=== PATIENT | female | born 1955 | race Caucasian/White ===

== ENCOUNTER 2019-04-10 21:13 | Inpatient (IN) | payer BC ==
[~2019-04-10] VITALS: Ht 162.6 cm; Wt 94.5 kg
[~2019-04-10 21:13] MED LIST: ACET-804 PO; ASCO10002 PO; CA C1TAB28 PO; CYAN-25 PO; EZET10TA20 PO; IRON45TA3 PO; LISI-130 PO; MAGN500C10 PO; MULT1TAB52 PO; OMEP40CA45 PO; WARF1POW MC
[2019-04-10] MEDS ORDERED: IV NORMAL SALINE 1000ML BAG 1,000 ML IV SCH (21:30)
[2019-04-10] MEDS ORDERED: ASPIRIN CHEWABLE 81 MG TABLET. PO ONE (21:30)
[2019-04-10 21:36] LABS: BASO # 0.1 x10^3/uL (0.0-0.2); BASO % 1 % (0-3); EOS # 0.2 x10^3/uL (0.0-0.7); EOS % 3 % (0-3); HEMATOCRIT 42.3 % (36.0-47.0); HEMOGLOBIN 14.6 g/dL (12.0-15.5); LYMPH # 3.2 x10^3/uL (1.0-4.8); LYMPH % 41 % (24-48); MEAN CORPUSCULAR HEMOGLOBIN 31 pg (25-35); MEAN CORPUSCULAR HGB CONC 35 g/dL (31-37); MEAN CORPUSCULAR VOLUME 91 fL (79-100); MONO # 0.8 x10^3/uL (0.0-1.1); MONO % 10 % (0-9); NEUT # 3.5 x10^3/uL (1.8-7.7); NEUT % 45 % (31-73); PLATELET COUNT 316 x10^3/uL (140-400); RED BLOOD COUNT 4.66 x10^6/uL (3.50-5.40); RED CELL DISTRIBUTION WIDTH 14.2 % (11.5-14.5); WHITE BLOOD COUNT 7.7 x10^3/uL (4.0-11.0)
[2019-04-10] MEDS: NITROGLYCERIN SUBLINGUAL 0.4 MG BOTTLE OF 25. SL PRN ×2 (21:37→22:16)
[2019-04-10 21:52] LABS: CREATININE 0.9 mg/dL (0.6-1.0); GFR 62.8; POTASSIUM 3.9 mmol/L (3.5-5.1)
--- NOTE | 2019-04-10 21:56 | PHYS DOC ---
Adult General Chief Complaint Chief Complaint: CHEST PAIN HPI HPI 64-year-old female with underlying history of hypertension presents to the emergency department with complaints of chest pain. Patient states she's had linda st pain off and on all day however developed tingling, nausea, flush feeling of which prompted her to come to the emergency department. She currently denies any vomiting however does have some chest discomfort. She describes bilateral lower extremity edema as well, worse than usual. Patient does have a remote history of a blood clot status post right knee replacement. Patient states she was on blood thinning medications for 3-6 months that time however that has been discontinued. She does describe a remote history as well with difficulty controlling her blood pressure. Review of Systems Review of Systems Constitutional: Denies fever or chills [] Respiratory: Denies cough or shortness of breath [] Cardiovascular: No additional information not addressed in HPI [] GI: Denies abdominal pain, + nausea, no vomiting, bloody stools or diarrhea [] Musculoskeletal: Denies back pain or joint pain [] Neurologic: + headache, no focal weakness, bilateral tingling [] All other systems were reviewed and found to be within normal limits, except as documented in this note. Current Medications Current Medications Current Medications Medications (Trade) Dose Ordered Sig/Mariella Start Time Stop Time Status Last Admin Dose Admin Acetaminophen (Tylenol) 650 mg PRN Q4HRS PRN 04/10/19 23:45 04/11/19 23:44 Aspirin (Children'S Aspirin) 324 mg 1X ONCE 04/10/19 21:30 04/10/19 21:33 DC Hydralazine HCl (Apresoline Inj) 10 mg 1X ONCE 04/10/19 23:45 04/10/19 23:46 DC 04/10/19 23:49 10 MG Info (CONTRAST GIVEN -- Rx MONITORING) 1 each PRN DAILY PRN 04/10/19 23:30 04/12/19 23:29 Iohexol (Omnipaque 350 Mg/ml) 100 ml 1X ONCE 04/10/19 23:30 04/10/19 23:31 DC 04/10/19 23:39 100 ML Morphine Sulfate (Morphine Sulfate) 2 mg PRN Q2HR PRN 04/10/19 23:45 04/11/19 23:44 Multi-Ingredient Mouthwash/Gargle (Gi Cocktail) 20 ml 1X ONCE 04/10/19 23:00 04/10/19 23:01 DC 04/10/19 22:51 20 ML Nitroglycerin (Nitrostat) 0.4 mg PRN Q5MIN PRN 04/10/19 23:45 04/11/19 23:44 Ondansetron HCl (Zofran) 4 mg PRN Q8HRS PRN 04/10/19 23:45 04/11/19 23:44 Sodium Chloride 1,000 ml @ 1,000 mls/hr Q1H 04/10/19 21:30 04/10/19 22:29 DC 04/10/19 21:37 1,000 MLS/HR Allergies Allergies Allergies Uncoded Allergies Type Severity Reaction Last Updated Verified beesting Adverse Reaction Severe 05/02/13 Physical Exam Physical Exam Constitutional: Well developed, well nourished, no acute distress, non-toxic appearance. [] HENT: Normocephalic, atraumatic, bilateral external ears normal, oropharynx moist, no oral exudates, nose normal. [] Eyes: PERRLA, EOMI, conjunctiva normal, no discharge. [] Cardiovascular:Heart rate regular rhythm, no murmur [] Lungs & Thorax: Bilateral breath sounds clear to auscultation [] Abdomen: Bowel sounds normal, soft, no tenderness, no masses, no pulsatile masses. [] Skin: Warm, dry, no erythema, no rash. [] Back: No tenderness, no CVA tenderness. [] Extremities: No tenderness, no edema. [] Neurologic: Alert and oriented X 3, no focal deficits noted. [] Psychologic: Affect normal, judgement normal, mood normal. [] Current Patient Data Vital Signs Vital Signs Date Time Temp Pulse Resp B/P (MAP) Pulse Ox O2 Delivery O2 Flow Rate FiO2 04/10/19 23:49 74 180/81 04/10/19 21:15 98.1 17 99 Room Air 98.1 Lab Values Laboratory Tests Test 04/10/19 21:20 White Blood Count 7.7 x10^3/uL (4.0-11.0) Red Blood Count 4.66 x10^6/uL (3.50-5.40) Hemoglobin 14.6 g/dL (12.0-15.5) Hematocrit 42.3 % (36.0-47.0) Mean Corpuscular Volume 91 fL (79-100) Mean Corpuscular Hemoglobin 31 pg (25-35) Mean Corpuscular Hemoglobin Concent 35 g/dL (31-37) Red Cell Distribution Width 14.2 % (11.5-14.5) Platelet Count 316 x10^3/uL (140-400) Neutrophils (%) (Auto) 45 % (31-73) Lymphocytes (%) (Auto) 41 % (24-48) Monocytes (%) (Auto) 10 % (0-9) H Eosinophils (%) (Auto) 3 % (0-3) Basophils (%) (Auto) 1 % (0-3) Neutrophils # (Auto) 3.5 x10^3/uL (1.8-7.7) Lymphocytes # (Auto) 3.2 x10^3/uL (1.0-4.8) Monocytes # (Auto) 0.8 x10^3/uL (0.0-1.1) Eosinophils # (Auto) 0.2 x10^3/uL (0.0-0.7) Basophils # (Auto) 0.1 x10^3/uL (0.0-0.2) D-Dimer (Daija) 0.69 ug/mlFEU (0.00-0.50) H Sodium Level 139 mmol/L (136-145) Potassium Level 3.9 mmol/L (3.5-5.1) Chloride Level 102 mmol/L (98-107) Carbon Dioxide Level 26 mmol/L (21-32) Anion Gap 11 (6-14) Blood Urea Nitrogen 24 mg/dL (7-20) H Creatinine 0.9 mg/dL (0.6-1.0) Estimated GFR (Cockcroft-Gault) 62.8 BUN/Creatinine Ratio 27 (6-20) H Glucose Level 133 mg/dL (70-99) H Calcium Level 9.0 mg/dL (8.5-10.1) Magnesium Level 1.8 mg/dL (1.8-2.4) Total Bilirubin 0.2 mg/dL (0.2-1.0) Aspartate Amino Transferase (AST) 37 U/L (15-37) Alanine Aminotransferase (ALT) 48 U/L (14-59) Alkaline Phosphatase 91 U/L (46-116) Troponin I Quantitative < 0.017 ng/mL (0.000-0.055) QM-Opm-L-Type Natriuretic Peptide 111 pg/mL (0-124) Total Protein 7.6 g/dL (6.4-8.2) Albumin 3.8 g/dL (3.4-5.0) Albumin/Globulin Ratio 1.0 (1.0-1.7) Laboratory Tests 04/10/19 21:20 Laboratory Tests 04/10/19 21:20 EKG EKG EKG reviewed, normal sinus rhythm, left axis deviation, heart rate 78, interpretation time 2117, no evidence of STEMI[] Radiology/Procedures Radiology/Procedures [facility] [address] [place] [address] IMAGING REPORT Signed PATIENT: JODI SEVERINO ACCOUNT: [id number] : 1955 LOCATION: ER AGE: 64 SEX: F EXAM STATUS: REG ER ORD. PHYSICIAN: STEFFANY CADE MD REASON: eelevatd ddimer, chest pain, history of DVT, no blood thinning med PROCEDURE: CT ANGIOGRAPHY CHEST Exam: CT of chest with contrast INDICATION: Elevated d-dimer, chest pain TECHNIQUE: Sequential axial images through the chest obtained following the administration of 100 mL of Omni 350 IV contrast. Sagittal and coronal reformatted images were reconstructed from the axial data and reviewed. 3-D reformatted images were reconstructed from the axial data and reviewed. Comparisons: None FINDINGS: Visualized portions of the thyroid are unremarkable. No enlarged mediastinal lymph nodes are identified. Heart size is normal. No pericardial effusion. Thoracic aorta has a normal course and caliber. Pulmonary artery is not enlarged. No pulmonary embolus identified within the main, lobar or segmental pulmonary arteries. Airways are patent. No consolidation or pneumothorax. No suspicious lung nodules are identified. No pleural effusion or thickening. Visualized upper abdomen is unremarkable. No suspicious osseous lesions or acute fractures. IMPRESSION: No pulmonary embolus identified within the main, lobar or segmental pulmonary arteries. Exposure: One or more of the following in the visualized dose reduction techniques were utilized for this examination: 1. Automated exposure control 2. Adjustment of the MA and/or KV according to patient size 3. Use of iterative of reconstructive technique Electronically signed by: Armando Evans MD (04/11/2019 12:06 AM) [facility] [place] DICTATED and SIGNED BY: ARMANDO EVANS MD DATE: 04/11/19 0006 [] [facility] [address] [place] [address] IMAGING REPORT Signed PATIENT: JODI SEVERINO ACCOUNT: [id number] : 1955 LOCATION: ER AGE: 64 SEX: F EXAM STATUS: REG ER ORD. PHYSICIAN: STEFFANY CADE MD REASON: Chest Pain PROCEDURE: PORTABLE CHEST 1V Examination: PORTABLE CHEST 1V History: Chest pain Comparison/Correlation: 04/01/2013 two-view chest x-ray exam Findings: Portable upright frontal view of the chest was obtained. Heart size is normal. Borderline pulmonary vasculature noted. No infiltrate. No pneumothorax. Mild interstitial thickening of lung maldonado noted. Bony structures are grossly unremarkable. Impression: No focal infiltrate. Electronically signed by: Gilbert Gray MD (04/10/2019 11:51 PM) [facility] [place] DICTATED and SIGNED BY: GILBERT GRAY MD DATE: 04/10/19 205 Course & Med Decision Making Course & Med Decision Making Pertinent Labs and Imaging studies reviewed. (See chart for details) []64-year-old female with underlying history of [facility]. Patient states she's had chest pain off and on all day however developed tingling, nausea, flush feeling of which prompted her to come to the emergency department. She currently denies any vomiting however does have some chest discomfort. She describes bilateral lower extremity edema as well, worse than usual. Patient does have a remote history of a blood clot status post right knee replacement. Patient states she was on blood thinning medications for 3-6 months that time however that has been discontinued. She does describe a remote history as well with difficulty controlling her blood pressure. Patient presented with chest pain as described above, evidence of hypertensive urgency with blood pressure in the 180s to 190s systolically. Blood pressure treated with hydralazine 10 mg IV 1 Revised reviewed, troponin negative, d-dimer mildly elevated 0.69. CTA chest reveals no evidence of acute PE Given patient's intermittent chest pain, heart score will plan admit and further evaluation with cardiology consultation Miguelina Disclaimer Miguelina Disclaimer This electronic medical record was generated, in whole or in part, using a voice recognition dictation system. Critical Care Time Critical care time was 35 minutes exclusive of procedures. The HEART Score for CP Pts HEART Score for Chest Pain: HEART Score for Chest Pain Response (Comments) Value History Slighlty/Non-Suspicious 0 ECG Nonspecific Repolarizatio 1 Age > 65 2 Risk Factors 1 or 2 Risk Factors 1 Troponin < Normal Limit 0 Total 4 Risk Factors: Risk Factors: DM, Current or recent (<one month) smoker, HTN, HLP, family hi story of CAD, obesity. Risk Scores: Score 0 - 3: 2.5% MACE over next 6 weeks - Discharge Home Score 4 - 6: 20.3% MACE over next 6 weeks - Admit for Clinical Observation Score 7 - 10: 72.7% MACE over next 6 weeks - Early Invasive Strategies Departure Departure Impression: Primary Impression: Chest pain Additional Impression: Hypertensive urgency Disposition: 09 ADMITTED INPATIENT Admitting Physician: ZAKIYA Condition: IMPROVED Referrals: TONIE SEN (PCP) Problem Qualifiers Primary Impression: Chest pain Chest pain type: unspecified Qualified Codes: R07.9 - Chest pain, unspecified STEFFANY CADE MD Apr 10, 2019 21:56
[2019-04-10 22:04] LABS: ALBUMIN 3.8 g/dL (3.4-5.0); MAGNESIUM 1.8 mg/dL (1.8-2.4); TOTAL BILIRUBIN 0.2 mg/dL (0.2-1.0); TOTAL PROTEIN 7.6 g/dL (6.4-8.2)
[2019-04-10] MEDS ORDERED: LIDO:MAALOX 1:1 20 ML SINGLE DOSE. SWSW ONE (23:00)
[2019-04-10] MEDS ORDERED: IOHEXOL 350 MG/ML 100 ML VIAL. IV ONE (23:30)
[2019-04-10] MEDS ORDERED: CONTRAST GIVEN. MC PRN (23:30)
[2019-04-10] MEDS ORDERED: NITROGLYCERIN SUBLINGUAL 0.4 MG BOTTLE OF 25. SL PRN (23:45)
[2019-04-10] MEDS ORDERED: hydrALAZINE 20 MG/ML VIAL. IVP ONE (23:45)
[2019-04-10] MEDS ORDERED: ACETAMINOPHEN 325 MG TABLET. PO PRN (23:45)
[2019-04-10] MEDS ORDERED: ONDANSETRON PF 4 MG/2 ML VIAL. IV PRN (23:45)
[2019-04-10] MEDS ORDERED: MORPHINE SULFATE 2 MG/ML VIAL. IV PRN (23:45)
--- NOTE | 2019-04-10 23:54 | RAD ---
Examination: PORTABLE CHEST 1V History: Chest pain Comparison/Correlation: 04/01/2013 two-view chest x-ray exam Findings: Portable upright frontal view of the chest was obtained. Heart size is normal. Borderline pulmonary vasculature noted. No infiltrate. No pneumothorax. Mild interstitial thickening of lung maldonado noted. Bony structures are grossly unremarkable. Impression: No focal infiltrate. Electronically signed by: Gilbert Villegas MD (04/10/2019 11:51 PM) [facility]
--- NOTE | 2019-04-11 00:09 | RAD ---
Exam: CT of chest with contrast INDICATION: Elevated d-dimer, chest pain TECHNIQUE: Sequential axial images through the chest obtained following the administration of 100 mL of Omni 350 IV contrast. Sagittal and coronal reformatted images were reconstructed from the axial data and reviewed. 3-D reformatted images were reconstructed from the axial data and reviewed. Comparisons: None FINDINGS: Visualized portions of the thyroid are unremarkable. No enlarged mediastinal lymph nodes are identified. Heart size is normal. No pericardial effusion. Thoracic aorta has a normal course and caliber. Pulmonary artery is not enlarged. No pulmonary embolus identified within the main, lobar or segmental pulmonary arteries. Airways are patent. No consolidation or pneumothorax. No suspicious lung nodules are identified. No pleural effusion or thickening. Visualized upper abdomen is unremarkable. No suspicious osseous lesions or acute fractures. IMPRESSION: No pulmonary embolus identified within the main, lobar or segmental pulmonary arteries. Exposure: One or more of the following in the visualized dose reduction techniques were utilized for this examination: 1. Automated exposure control 2. Adjustment of the MA and/or KV according to patient size 3. Use of iterative of reconstructive technique Electronically signed by: Armando Helton MD (04/11/2019 12:06 AM) [facility]
[2019-04-11 00:45] VITALS: BP 182/84
[2019-04-11 03:15] VITALS: BP 115/62
[2019-04-11] MEDS ORDERED: hydrALAZINE 20 MG/ML VIAL. IVP ONE (06:00)
--- NOTE | 2019-04-11 06:26 | EKG ---
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
[2019-04-11] MEDS ORDERED: AMLO10TA8 PO (06:55)
[2019-04-11] MEDS ORDERED: METO200T46 PO (06:55)
[2019-04-11] MEDS ORDERED: SUCR1TAB PO (06:55)
[2019-04-11] MEDS ORDERED: LISI1TAB19 PO (06:56)
[2019-04-11 07:00] VITALS: BP 172/81
[2019-04-11] MEDS ORDERED: hydrALAZINE 20 MG/ML VIAL. IVP PRN (08:00)
[2019-04-11] MEDS ORDERED: HYDROcodone/APAP 5/325MG 1 TAB TABLET PO PRN (08:00)
[2019-04-11] MEDS ORDERED: LISINOPRIL 20 MG TABLET PO SCH ×2 (08:00→09:00)
[2019-04-11] MEDS ORDERED: SUCRALFATE 1 GM TABLET. PO SCH (09:00)
[2019-04-11] MEDS ORDERED: hydroCHLOROthiazide 12.5 MG CAPSULE PO SCH (09:00)
[2019-04-11] MEDS ORDERED: CHOLECALCIFEROL (VITAMIN D3) 1,000 UNIT TABLET PO SCH (09:00)
[2019-04-11] MEDS ORDERED: PANTOPRAZOLE 40 MG TABLET.DR. PO SCH (09:00)
[2019-04-11] MEDS ORDERED: METOPROLOL SUCC 24HR ER 100 MG TAB.ER.24H. PO SCH (09:00)
[2019-04-11] MEDS ORDERED: CYANOCOBALAMIN (VITAMIN B-12) 1,000 MCG TABLET. PO SCH (09:00)
[2019-04-11] MEDS ORDERED: ASCORBIC ACID 500 MG TABLET PO SCH (09:00)
[2019-04-11] MEDS ORDERED: amLODIPine BESYLATE 10 MG TABLET PO SCH (09:00)
--- NOTE | 2019-04-11 09:27 | PDOC2 ---
CELINA BERNSTEIN INVESTIGATOR [employer] 04/11/19 0927: CARDIAC CONSULT DATE OF CONSULT Date of Consult DATE: 04/11/19 TIME: 09:21 REASON FOR CONSULT Reason for Consult: Chest pain Hypertensive urgency REFERRING PHYSICIAN Referring Physician: Dr. Phipps SOURCE Source: Chart review, Patient HISTORY OF PRESENT ILLNESS HISTORY OF PRESENT ILLNESS This is a 64 yo female who presented secondary to chest pain. Patient reports waking up with pain in her left chest yesterday morning along with headache. Had a large democrat with family at her house the prior day. Though initially she was just extremely tired. Went ahead and went to daughter house for [employer] celebration. Just didn't feel well overall. Decided to go home and rest. As the evening progressed, pain seemed to get slightly worse and had tingling down her left and pain up the left side of her jaw. C/o heaviness in her left chest. Priddy as if she couldn't take a deep breath and was slightly nauseated. No dizziness or palpitation. Decided to come to the ED for further evaluation and treatment. Blood pressure significantly elevated upon arrival. Was given hydralazine and nitro in ED, which resolved pain. She was hoping to be discharged from the ED, but was recommended to stay overnight for evaluation. No further pain overnight. Report that he blood pressure normally runs high, but never this high. Admits to high Na dietary intake over the Hollidays. Has also had some fluid retention recently with mild swelling in her LE. PAST MEDICAL HISTORY Cardiovascular: HTN, Hyperlipidemia GI: GERD Psych: Anxiety Musculoskeletal: Osteoarthritis, Other (DDD) PAST SURGICAL HISTORY Past Surgical History: Tubal Ligation, Tonsillectomy, Hysterectomy FAMILY HISTORY Family History: Coronary Artery Disease (mother ), Diabetes, Hypertension, Stroke (mother ) SOCIAL HISTORY Smoke: Quit (many years ago) ALCOHOL: none Drugs: None Lives: Alone CURRENT MEDICATIONS CURRENT MEDICATIONS Current Medications Medications (Trade) Dose Ordered Sig/Mariella Route PRN Reason Start Time Stop Time Status Last Admin Dose Admin Nitroglycerin (Nitrostat) 0.4 mg PRN Q5MIN PRN SL CP RATING > 1/10 04/10/19 21:30 04/10/19 23:46 DC 04/10/19 22:16 Sodium Chloride 1,000 ml @ 1,000 mls/hr Q1H IV 04/10/19 21:30 04/10/19 22:29 DC 04/10/19 21:37 Multi-Ingredient Mouthwash/Gargle (Gi Cocktail) 20 ml 1X ONCE SWSW 04/10/19 23:00 04/10/19 23:01 DC 04/10/19 22:51 Iohexol (Omnipaque 350 Mg/ml) 100 ml 1X ONCE IV 04/10/19 23:30 04/10/19 23:31 DC 04/10/19 23:39 Hydralazine HCl (Apresoline Inj) 10 mg 1X ONCE IVP 04/10/19 23:45 04/10/19 23:46 DC 04/10/19 23:49 Amlodipine Besylate (Norvasc) 10 mg DAILY PO 04/11/19 09:00 04/11/19 08:47 Lisinopril (Prinivil) 20 mg DAILY PO 04/11/19 09:00 04/11/19 08:47 Pantoprazole Sodium (Protonix) 40 mg DAILYAC PO 04/11/19 09:00 04/11/19 08:47 Hydrochlorothiazide (Microzide) 12.5 mg DAILY PO 04/11/19 09:00 04/11/19 08:47 ALLERGIES ALLERGIES: Uncoded Allergies: beesting (Adverse Reaction, Severe, 05/02/13) patient stated allergic to bee sting swell badly and had sob ROS Review of System 14 point ROS conducted with pertinent positives noted above in hPI PHYSICAL EXAM General: Alert, Oriented X3, Cooperative, No acute distress HEENT: Atraumatic, Mucous membr. moist/pink Lungs: Clear to auscultation Heart: Regular rate, Normal S1, Normal S2, No murmurs Abdomen: Soft, No tenderness Extremities: Normal pulses, Other (trace LE edema bilaterally ) Skin: No significant lesion Neuro: Normal speech, Sensation intact Psych/Mental Status: Mental status NL, Mood NL MUSCULOSKELETAL: No joint tenderness VITALS/I&O VITALS/I&O: Vital Signs Date Time Temp Pulse Resp B/P (MAP) Pulse Ox O2 Delivery O2 Flow Rate FiO2 04/11/19 08:47 64 172/81 04/11/19 07:00 97.2 16 96 Room Air 97.2 I & O 04/10/19 04/10/19 04/11/19 15:00 23:00 07:00 Intake Total 0 ml Balance 0 ml LABS Lab: Laboratory Tests Test 04/10/19 21:20 White Blood Count 7.7 x10^3/uL (4.0-11.0) Red Blood Count 4.66 x10^6/uL (3.50-5.40) Hemoglobin 14.6 g/dL (12.0-15.5) Hematocrit 42.3 % (36.0-47.0) Mean Corpuscular Volume 91 fL (79-100) Mean Corpuscular Hemoglobin 31 pg (25-35) Mean Corpuscular Hemoglobin Concent 35 g/dL (31-37) Red Cell Distribution Width 14.2 % (11.5-14.5) Platelet Count 316 x10^3/uL (140-400) Neutrophils (%) (Auto) 45 % (31-73) Lymphocytes (%) (Auto) 41 % (24-48) Monocytes (%) (Auto) 10 % (0-9) H Eosinophils (%) (Auto) 3 % (0-3) Basophils (%) (Auto) 1 % (0-3) Neutrophils # (Auto) 3.5 x10^3/uL (1.8-7.7) Lymphocytes # (Auto) 3.2 x10^3/uL (1.0-4.8) Monocytes # (Auto) 0.8 x10^3/uL (0.0-1.1) Eosinophils # (Auto) 0.2 x10^3/uL (0.0-0.7) Basophils # (Auto) 0.1 x10^3/uL (0.0-0.2) D-Dimer (Daija) 0.69 ug/mlFEU (0.00-0.50) H Sodium Level 139 mmol/L (136-145) Potassium Level 3.9 mmol/L (3.5-5.1) Chloride Level 102 mmol/L (98-107) Carbon Dioxide Level 26 mmol/L (21-32) Anion Gap 11 (6-14) Blood Urea Nitrogen 24 mg/dL (7-20) H Creatinine 0.9 mg/dL (0.6-1.0) Estimated GFR (Cockcroft-Gault) 62.8 BUN/Creatinine Ratio 27 (6-20) H Glucose Level 133 mg/dL (70-99) H Calcium Level 9.0 mg/dL (8.5-10.1) Magnesium Level 1.8 mg/dL (1.8-2.4) Total Bilirubin 0.2 mg/dL (0.2-1.0) Aspartate Amino Transferase (AST) 37 U/L (15-37) Alanine Aminotransferase (ALT) 48 U/L (14-59) Alkaline Phosphatase 91 U/L (46-116) Troponin I Quantitative < 0.017 ng/mL (0.000-0.055) WT-Ojf-W-Type Natriuretic Peptide 111 pg/mL (0-124) Total Protein 7.6 g/dL (6.4-8.2) Albumin 3.8 g/dL (3.4-5.0) Albumin/Globulin Ratio 1.0 (1.0-1.7) Laboratory Tests 04/10/19 21:20 Laboratory Tests 04/10/19 21:20 ASSESSMENT/PLAN ASSESSMENT/PLAN 1. Chest pain, mixed feature. Possibly secondary to #2. 2. Hypertensive urgency; remains elevated 3. Hyperlipidemia; intolerant to statins. 4. Elevated d-dimer; CTA negative for PE 5. Elevated glucose Recommendations Trend troponin Lipid panel, A1C Echo to assess LV systolic function Resume Norvasc, HCTZ, metoprolol. Increase lisinopril to 40mg. Patient unsure of home meds. Per pharmacy records, looks as if Norvasc was recently added and metoprolol was decreased from 200mg to 100mg. Given risk factors, will need further ischemic evaluation, possible as an outpatient Further recommendations pending above. RENU CALLEJAS MD 04/11/19 0165: CARDIAC CONSULT ASSESSMENT/PLAN ASSESSMENT/PLAN Patient seen and examined. Agree with above nurse practitioner note. I had a long discussion with the patient. Currently she does not have any chest pain. She does not have any significant limitations at home and she is able to go ballroom dancing every week without any cardiac limitations. Currently her blood pressure better controlled. There has been some significant confusion on her part regarding her current medical therapy. I discussed her case with her primary care physician. We will plan for discharge on Toprol-XL 100 mg daily, amlodipine 10 mA daily and lisinopril/had core thiazide 20/12.5 one tablet by mouth twice a day. She had a recent echocardiogram. Her primary care physician's office which she reports is normal Follow up with PCP CELINA BERNSTEIN APRN Apr 11, 2019 09:27 RENU CALLEJAS MD Apr 11, 2019 14:35
--- NOTE | 2019-04-11 09:43 | PDOC1 ---
History and Physical Date of Admission Date of Admission DATE: 04/11/19 TIME: 09:38 Identification/Chief Complaint Chief Complaint cp Source Source: Caregiver, Chart review, Patient History of Present Illness History of Present Illness 64 white female, BMI 35.8, CP yesterday, lasted hrs, admits to being stressed lately this season, no relief with asa 4 tabs, relieved by NTG SL, NO personal hx CAD, no DM, but Accel HTN on arrival. NOW better, SBP 120s, CP free, LAste cho July or august 2018 before her trip to [place] for some cp/epig pain/gerd, and echo was ok. Some leg edema (nothing marked to me), which is better now accdg to her, The CHEst pain was accompanied by left facial tingling and numbness,and left hand, maybe some soa, "nothing is right" so she opted to come to ER Past Medical History Cardiovascular: HTN, Hyperlipidemia GI: GERD Psych: Anxiety Musculoskeletal: Osteoarthritis, Other (DDD) Past Surgical History Past Surgical History: Tubal Ligation, Tonsillectomy, Hysterectomy Family History Family History: Hypertension Social History Smoke: No ALCOHOL: occassional Drugs: None Current Problem List Problem List Problems Medical Problems: (1) Chest pain Status: Acute (2) Hypertensive urgency Status: Acute Current Medications Current Medications Current Medications Aspirin (Children'S Aspirin) 324 mg 1X ONCE PO ; Start 04/10/19 at 21:30; Stop 04/10/19 at 21:33; Status DC Nitroglycerin (Nitrostat) 0.4 mg PRN Q5MIN PRN SL CP RATING > 1/10 Last administered on 04/10/19at 22:16; Start 04/10/19 at 21:30; Stop 04/10/19 at 23:46; Status DC Sodium Chloride 1,000 ml @ 1,000 mls/hr Q1H IV Last administered on 04/10/19at 21:37; Start 04/10/19 at 21:30; Stop 04/10/19 at 22:29; Status DC Multi-Ingredient Mouthwash/Gargle (Gi Cocktail) 20 ml 1X ONCE SWSW Last administered on 04/10/19at 22:51; Start 04/10/19 at 23:00; Stop 04/10/19 at 23:01; Status DC Iohexol (Omnipaque 350 Mg/ml) 100 ml 1X ONCE IV Last administered on 9at 23:39; Start 04/10/19 at 23:30; Stop 04/10/19 at 23:31; Status DC Info (CONTRAST GIVEN -- Rx MONITORING) 1 each PRN DAILY PRN MC SEE COMMENTS; Start 04/10/19 at 23:30; Stop 04/12/19 at 23:29 Hydralazine HCl (Apresoline Inj) 10 mg 1X ONCE IVP Last administered on 04/10/19at 23:49; Start 04/10/19 at 23:45; Stop 04/10/19 at 23:46; Status DC Ondansetron HCl (Zofran) 4 mg PRN Q8HRS PRN IV NAUSEA/VOMITING; Start 04/10/19 at 23:45; Stop 04/11/19 at 23:44 Morphine Sulfate (Morphine Sulfate) 2 mg PRN Q2HR PRN IV PAIN; Start 04/10/19 at 23:45; Stop 04/11/19 at 23:44 Acetaminophen (Tylenol) 650 mg PRN Q4HRS PRN PO FEVER; Start 04/10/19 at 23:45; Stop 04/11/19 at 23:44 Nitroglycerin (Nitrostat) 0.4 mg PRN Q5MIN PRN SL CHEST PAIN; Start 04/10/19 at 23:45; Stop 04/11/19 at 23:44 Hydralazine HCl (Apresoline Inj) 10 mg 1X ONCE IVP ; Start 04/11/19 at 06:00; Stop 04/11/19 at 06:01; Status DC Amlodipine Besylate (Norvasc) 10 mg DAILY PO Last administered on 04/11/19at 08:47; Start 04/11/19 at 09:00 Cyanocobalamin (Vitamin B-12) 2,000 mcg BID PO ; Start 04/11/19 at 09:00 EZETIMIBE (Zetia) 10 mg HS PO ; Start 04/11/19 at 21:00 Lisinopril (Prinivil) 40 mg DAILY08 PO ; Start 04/11/19 at 08:00; Stop 04/11/19 at 08:09; Status DC Sucralfate (Carafate) 1 gm DAILY PO ; Start 04/11/19 at 09:00 Ascorbic Acid (Vitamin C) 500 mg DAILY PO ; Start 04/11/19 at 09:00 Vitamin D (Vitamin D3) 3,000 unit DAILY PO ; Start 04/11/19 at 09:00 Lisinopril (Prinivil) 20 mg DAILY PO Last administered on 04/11/19at 08:47; Start 04/11/19 at 09:00 Magnesium Oxide (Magnesium Oxide) 400 mg QHS PO ; Start 04/11/19 at 21:00 Metoprolol Succinate (Toprol Xl) 200 mg DAILY PO ; Start 04/11/19 at 09:00 Pantoprazole Sodium (Protonix) 40 mg DAILYAC PO Last administered on 04/11/19at 08:47; Start 04/11/19 at 09:00 Hydralazine HCl (Apresoline Inj) 10 mg PRN Q4HRS PRN IVP ELEVATED BP, SEE COMMENTS; Start 04/11/19 at 08:00 Acetaminophen/ Hydrocodone Bitart (Lortab 5/325) 1 tab PRN Q4HRS PRN PO MODERATE PAIN; Start 04/11/19 at 08:00 Hydrochlorothiazide (Microzide) 12.5 mg DAILY PO Last administered on 04/11/19at 08:47; Start 04/11/19 at 09:00 Active Scripts Active Reported Lisinopril-Hctz 20-12.5 Mg Tab (Lisinopril/Hydrochlorothiazide) 1 Each Tablet 1 Tab PO DAILY Metoprolol Succinate ( Xl ) (Metoprolol Succinate) 200 Mg Tab.er.24h 200 Mg PO DAILY Sucralfate 1 Gm Tablet 1 Gm PO DAILY Amlodipine Besylate 10 Mg Tablet 10 Mg PO DAILY Warfarin Sodium 5 Gm Powder 5 Gm MC 1X Magnesium (Magnesium Oxide) 500 Mg Capsule 500 Mg PO HS Vitamin B-12 (Cyanocobalamin (Vitamin B-12)) 1,000 Mcg Tablet 2,000 Mcg PO BID Vitamin D3 1,000 Unit Tablet (Ca Cmb No.1/Vit D3/B-6/Fa/B12) 1 Each Tablet 3 Each PO HS Vitamin C (Ascorbic Acid) 1,000 Mg Tablet 5,000 Mg PO DAILY08 Zetia (Ezetimibe) 10 Mg Tablet 10 Mg PO HS Omeprazole 40 Mg Capsule.dr 40 Mg PO DAILY08 Lisinopril 40 Mg Tablet 40 Mg PO DAILY08 Allergies Allergies: Uncoded Allergies: beesting (Adverse Reaction, Severe, 05/02/13) patient stated allergic to bee sting swell badly and had sob ROS Review of System as per hpi, all else is neg Physical Exam General: Alert, Oriented X3, Cooperative, No acute distress HEENT: Atraumatic, PERRLA, EOMI Lungs: Clear to auscultation, Normal air movement Heart: S1S2, RRR, no thrills, no rubs, no gallops, no murmurs Cardiovascular: S1, S2 Breasts: Normal, Rt breast nml w/o mass, Lt breast nml w/o mass, Nipples normal Abdomen: Normal bowel sounds, Soft, No tenderness, No hepatosplenomegaly, No masses Rectal Exam: not examined PELVIC: Nml ext genitalia Extremities: No clubbing, No cyanosis, No edema, Normal pulses, No tenderness/swelling Skin: No rashes Neuro: Normal gait Psych/Mental Status: Mental status NL, Mood NL Vitals Vitals Vital Signs Date Time Temp Pulse Resp B/P (MAP) Pulse Ox O2 Delivery O2 Flow Rate FiO2 04/11/19 08:47 64 172/81 04/11/19 07:00 97.2 16 96 Room Air 97.2 Labs Labs Laboratory Tests Test 04/10/19 21:20 White Blood Count 7.7 x10^3/uL (4.0-11.0) Red Blood Count 4.66 x10^6/uL (3.50-5.40) Hemoglobin 14.6 g/dL (12.0-15.5) Hematocrit 42.3 % (36.0-47.0) Mean Corpuscular Volume 91 fL (79-100) Mean Corpuscular Hemoglobin 31 pg (25-35) Mean Corpuscular Hemoglobin Concent 35 g/dL (31-37) Red Cell Distribution Width 14.2 % (11.5-14.5) Platelet Count 316 x10^3/uL (140-400) Neutrophils (%) (Auto) 45 % (31-73) Lymphocytes (%) (Auto) 41 % (24-48) Monocytes (%) (Auto) 10 % (0-9) Eosinophils (%) (Auto) 3 % (0-3) Basophils (%) (Auto) 1 % (0-3) Neutrophils # (Auto) 3.5 x10^3/uL (1.8-7.7) Lymphocytes # (Auto) 3.2 x10^3/uL (1.0-4.8) Monocytes # (Auto) 0.8 x10^3/uL (0.0-1.1) Eosinophils # (Auto) 0.2 x10^3/uL (0.0-0.7) Basophils # (Auto) 0.1 x10^3/uL (0.0-0.2) D-Dimer (Daija) 0.69 ug/mlFEU (0.00-0.50) Sodium Level 139 mmol/L (136-145) Potassium Level 3.9 mmol/L (3.5-5.1) Chloride Level 102 mmol/L (98-107) Carbon Dioxide Level 26 mmol/L (21-32) Anion Gap 11 (6-14) Blood Urea Nitrogen 24 mg/dL (7-20) Creatinine 0.9 mg/dL (0.6-1.0) Estimated GFR (Cockcroft-Gault) 62.8 BUN/Creatinine Ratio 27 (6-20) Glucose Level 133 mg/dL (70-99) Calcium Level 9.0 mg/dL (8.5-10.1) Magnesium Level 1.8 mg/dL (1.8-2.4) Total Bilirubin 0.2 mg/dL (0.2-1.0) Aspartate Amino Transf (AST/SGOT) 37 U/L (15-37) Alanine Aminotransferase (ALT/SGPT) 48 U/L (14-59) Alkaline Phosphatase 91 U/L (46-116) Troponin I Quantitative < 0.017 ng/mL (0.000-0.055) ZJ-Bdk-M-Type Natriuretic Peptide 111 pg/mL (0-124) Total Protein 7.6 g/dL (6.4-8.2) Albumin 3.8 g/dL (3.4-5.0) Albumin/Globulin Ratio 1.0 (1.0-1.7) Laboratory Tests Test 04/10/19 21:20 White Blood Count 7.7 x10^3/uL (4.0-11.0) Red Blood Count 4.66 x10^6/uL (3.50-5.40) Hemoglobin 14.6 g/dL (12.0-15.5) Hematocrit 42.3 % (36.0-47.0) Mean Corpuscular Volume 91 fL (79-100) Mean Corpuscular Hemoglobin 31 pg (25-35) Mean Corpuscular Hemoglobin Concent 35 g/dL (31-37) Red Cell Distribution Width 14.2 % (11.5-14.5) Platelet Count 316 x10^3/uL (140-400) Neutrophils (%) (Auto) 45 % (31-73) Lymphocytes (%) (Auto) 41 % (24-48) Monocytes (%) (Auto) 10 % (0-9) Eosinophils (%) (Auto) 3 % (0-3) Basophils (%) (Auto) 1 % (0-3) Neutrophils # (Auto) 3.5 x10^3/uL (1.8-7.7) Lymphocytes # (Auto) 3.2 x10^3/uL (1.0-4.8) Monocytes # (Auto) 0.8 x10^3/uL (0.0-1.1) Eosinophils # (Auto) 0.2 x10^3/uL (0.0-0.7) Basophils # (Auto) 0.1 x10^3/uL (0.0-0.2) D-Dimer (Daija) 0.69 ug/mlFEU (0.00-0.50) Sodium Level 139 mmol/L (136-145) Potassium Level 3.9 mmol/L (3.5-5.1) Chloride Level 102 mmol/L (98-107) Carbon Dioxide Level 26 mmol/L (21-32) Anion Gap 11 (6-14) Blood Urea Nitrogen 24 mg/dL (7-20) Creatinine 0.9 mg/dL (0.6-1.0) Estimated GFR (Cockcroft-Gault) 62.8 BUN/Creatinine Ratio 27 (6-20) Glucose Level 133 mg/dL (70-99) Calcium Level 9.0 mg/dL (8.5-10.1) Magnesium Level 1.8 mg/dL (1.8-2.4) Total Bilirubin 0.2 mg/dL (0.2-1.0) Aspartate Amino Transf (AST/SGOT) 37 U/L (15-37) Alanine Aminotransferase (ALT/SGPT) 48 U/L (14-59) Alkaline Phosphatase 91 U/L (46-116) Troponin I Quantitative < 0.017 ng/mL (0.000-0.055) XI-Ztl-A-Type Natriuretic Peptide 111 pg/mL (0-124) Total Protein 7.6 g/dL (6.4-8.2) Albumin 3.8 g/dL (3.4-5.0) Albumin/Globulin Ratio 1.0 (1.0-1.7) VTE Prophylaxis Ordered VTE Prophylaxis Devices: Yes VTE Pharmacological Prophylaxi: Yes Assessment/Plan Assessment/Plan Accel HTN, POA< resolved Obesity BMI 36 Chest pain, left sided, recent stress, some left facial numbness and hand tingling, resolved with NTG SL GERD, anxiety PLAN: Cycle CE CVC bed CARds consult Reconcile home BP meds NPO till cardiac rounds dw her and cards full code SEBLE MALIK MD Apr 11, 2019 09:43
[2019-04-11 11:03] VITALS: BP 133/67
[2019-04-11 11:11] LABS: CHOLESTEROL/HDL RATIO 4.5
[2019-04-11] MEDS ORDERED: ASPIRIN ENTERIC COATED 81 MG TABLET.DR. PO SCH (12:00)
[2019-04-11] MEDS ORDERED: METOPROLOL SUCC 24HR ER 100 MG TAB.ER.24H. PO ONE (14:00)
[2019-04-11 15:14] VITALS: BP 169/70
[2019-04-11] MEDS ORDERED: METO-247 PO (15:21)
[2019-04-11] MEDS ORDERED: HYDR12.575 PO (15:21)
--- NOTE | 2019-04-11 15:23 | PDOC3 ---
Discharge Summary Visit Information Date of Admission: Apr 10, 2019 Date of Discharge: Apr 11, 2019 Admitting Diagnosis Comment: Accel HTN, POA< resolved Obesity BMI 36 Chest pain, left sided, recent stress, some left facial numbness and hand tingling, resolved with NTG SL GERD, anxiety Final Diagnosis Problems Medical Problems: (1) Chest pain Status: Acute (2) Hypertensive urgency Status: Acute Brief Hospital Course Allergies Allergies Uncoded Allergies Type Severity Reaction Last Updated Verified beesting Adverse Reaction Severe 05/02/13 Vital Signs Vital Signs Date Time Temp Pulse Resp B/P (MAP) Pulse Ox O2 Delivery O2 Flow Rate FiO2 04/11/19 15:14 97.6 61 18 169/70 (103) 98 Room Air 97.6 Lab Results Laboratory Tests Test 04/10/19 21:20 04/11/19 10:32 White Blood Count 7.7 x10^3/uL (4.0-11.0) Red Blood Count 4.66 x10^6/uL (3.50-5.40) Hemoglobin 14.6 g/dL (12.0-15.5) Hematocrit 42.3 % (36.0-47.0) Mean Corpuscular Volume 91 fL (79-100) Mean Corpuscular Hemoglobin 31 pg (25-35) Mean Corpuscular Hemoglobin Concent 35 g/dL (31-37) Red Cell Distribution Width 14.2 % (11.5-14.5) Platelet Count 316 x10^3/uL (140-400) Neutrophils (%) (Auto) 45 % (31-73) Lymphocytes (%) (Auto) 41 % (24-48) Monocytes (%) (Auto) 10 % (0-9) Eosinophils (%) (Auto) 3 % (0-3) Basophils (%) (Auto) 1 % (0-3) Neutrophils # (Auto) 3.5 x10^3/uL (1.8-7.7) Lymphocytes # (Auto) 3.2 x10^3/uL (1.0-4.8) Monocytes # (Auto) 0.8 x10^3/uL (0.0-1.1) Eosinophils # (Auto) 0.2 x10^3/uL (0.0-0.7) Basophils # (Auto) 0.1 x10^3/uL (0.0-0.2) D-Dimer (Daija) 0.69 ug/mlFEU (0.00-0.50) Sodium Level 139 mmol/L (136-145) Potassium Level 3.9 mmol/L (3.5-5.1) Chloride Level 102 mmol/L (98-107) Carbon Dioxide Level 26 mmol/L (21-32) Anion Gap 11 (6-14) Blood Urea Nitrogen 24 mg/dL (7-20) Creatinine 0.9 mg/dL (0.6-1.0) Estimated GFR (Cockcroft-Gault) 62.8 BUN/Creatinine Ratio 27 (6-20) Glucose Level 133 mg/dL (70-99) Calcium Level 9.0 mg/dL (8.5-10.1) Magnesium Level 1.8 mg/dL (1.8-2.4) Total Bilirubin 0.2 mg/dL (0.2-1.0) Aspartate Amino Transf (AST/SGOT) 37 U/L (15-37) Alanine Aminotransferase (ALT/SGPT) 48 U/L (14-59) Alkaline Phosphatase 91 U/L (46-116) Troponin I Quantitative < 0.017 ng/mL (0.000-0.055) < 0.017 ng/mL (0.000-0.055) BT-Kff-I-Type Natriuretic Peptide 111 pg/mL (0-124) Total Protein 7.6 g/dL (6.4-8.2) Albumin 3.8 g/dL (3.4-5.0) Albumin/Globulin Ratio 1.0 (1.0-1.7) Triglycerides Level 92 mg/dL (0-150) Cholesterol Level 260 mg/dL (0-200) LDL Cholesterol, Calculated 184 mg/dL (0-100) VLDL Cholesterol, Calculated 18 mg/dL (0-40) Non-HDL Cholesterol Calculated 202 mg/dL (0-129) HDL Cholesterol 58 mg/dL (40-60) Cholesterol/HDL Ratio 4.5 Thyroid Stimulating Hormone (TSH) 2.057 uIU/mL (0.358-3.74) Laboratory Tests Test 04/10/19 21:20 04/11/19 10:32 White Blood Count 7.7 x10^3/uL (4.0-11.0) Red Blood Count 4.66 x10^6/uL (3.50-5.40) Hemoglobin 14.6 g/dL (12.0-15.5) Hematocrit 42.3 % (36.0-47.0) Mean Corpuscular Volume 91 fL (79-100) Mean Corpuscular Hemoglobin 31 pg (25-35) Mean Corpuscular Hemoglobin Concent 35 g/dL (31-37) Red Cell Distribution Width 14.2 % (11.5-14.5) Platelet Count 316 x10^3/uL (140-400) Neutrophils (%) (Auto) 45 % (31-73) Lymphocytes (%) (Auto) 41 % (24-48) Monocytes (%) (Auto) 10 % (0-9) Eosinophils (%) (Auto) 3 % (0-3) Basophils (%) (Auto) 1 % (0-3) Neutrophils # (Auto) 3.5 x10^3/uL (1.8-7.7) Lymphocytes # (Auto) 3.2 x10^3/uL (1.0-4.8) Monocytes # (Auto) 0.8 x10^3/uL (0.0-1.1) Eosinophils # (Auto) 0.2 x10^3/uL (0.0-0.7) Basophils # (Auto) 0.1 x10^3/uL (0.0-0.2) D-Dimer (Daija) 0.69 ug/mlFEU (0.00-0.50) Sodium Level 139 mmol/L (136-145) Potassium Level 3.9 mmol/L (3.5-5.1) Chloride Level 102 mmol/L (98-107) Carbon Dioxide Level 26 mmol/L (21-32) Anion Gap 11 (6-14) Blood Urea Nitrogen 24 mg/dL (7-20) Creatinine 0.9 mg/dL (0.6-1.0) Estimated GFR (Cockcroft-Gault) 62.8 BUN/Creatinine Ratio 27 (6-20) Glucose Level 133 mg/dL (70-99) Calcium Level 9.0 mg/dL (8.5-10.1) Magnesium Level 1.8 mg/dL (1.8-2.4) Total Bilirubin 0.2 mg/dL (0.2-1.0) Aspartate Amino Transf (AST/SGOT) 37 U/L (15-37) Alanine Aminotransferase (ALT/SGPT) 48 U/L (14-59) Alkaline Phosphatase 91 U/L (46-116) Troponin I Quantitative < 0.017 ng/mL (0.000-0.055) < 0.017 ng/mL (0.000-0.055) LW-Bnx-P-Type Natriuretic Peptide 111 pg/mL (0-124) Total Protein 7.6 g/dL (6.4-8.2) Albumin 3.8 g/dL (3.4-5.0) Albumin/Globulin Ratio 1.0 (1.0-1.7) Triglycerides Level 92 mg/dL (0-150) Cholesterol Level 260 mg/dL (0-200) LDL Cholesterol, Calculated 184 mg/dL (0-100) VLDL Cholesterol, Calculated 18 mg/dL (0-40) Non-HDL Cholesterol Calculated 202 mg/dL (0-129) HDL Cholesterol 58 mg/dL (40-60) Cholesterol/HDL Ratio 4.5 Thyroid Stimulating Hormone (TSH) 2.057 uIU/mL (0.358-3.74) Brief Hospital Course Ms. Monk is a 64 old [sex] who presented with [ ]accel HTN, CARds has seen - echo ok, MEds adjusted, Dec metorpolol, to 100 qD (from 200qD) and inc lisiniopril to 40 from 20 and cont home hctz 12,5 qD 2 notes today OBS stay Dw KEVIN osorio Discharge Information Condition at Discharge: Improved, Stable Follow Up: Weeks (pcp 4 weeks re bP) Disposition/Orders: D/C to Home Scheduled Amlodipine Besylate (Amlodipine Besylate) 10 Mg Tablet, 10 MG PO DAILY for BP, (Reported) Entered as Reported by: Claudette George on 04/11/19 0655 Last Action: Continued on 04/11/19753 by SEBLE MALIK Ascorbic Acid (Vitamin C) 1,000 Mg Tablet, 5,000 MG PO DAILY08, (Reported) Entered as Reported by: VIET YU on 03/25/13 1634 Last Action: Converted on 04/11/19753 by SEBLE MALIK Ca Cmb No.1/Vit D3/B-6/Fa/B12 (Vitamin D3 1,000 Unit Tablet) 1 Each Tablet, 3 EACH PO HS, (Reported) Entered as Reported by: VIET YU on 03/25/13 1635 Last Action: Converted on 04/11/19753 by SEBLE MALIK Cyanocobalamin (Vitamin B-12) (Vitamin B-12) 1,000 Mcg Tablet, 2,000 MCG PO BID, (Reported) Entered as Reported by: VIET YU on 03/25/131636 Last Action: Continued on 04/11/19753 by SEBLE MALIK Ezetimibe (Zetia) 10 Mg Tablet, 10 MG PO HS, (Reported) Entered as Reported by: VIET YU on 03/25/131631 Last Action: Continued on 04/11/19753 by SEBLE MALIK Hydrochlorothiazide (Hydrochlorothiazide Capsule ) 12.5 Mg Capsule, 12.5 MG PO DAILY for htn, #30 Prescribed by: SEBLE MALIK on 04/11/19 1521 Lisinopril (Lisinopril) 40 Mg Tablet, 40 MG PO DAILY08, (Reported) Entered as Reported by: VIET YU on 03/25/131631 Last Action: Continued on 04/11/19753 by SEBLE MALIK Magnesium Oxide (Magnesium) 500 Mg Capsule, 500 MG PO HS, (Reported) Entered as Reported by: VIET YU on 03/25/131636 Last Action: Converted on 04/11/19753 by SEBLE MALIK Metoprolol Succinate (Metoprolol Succinate ( Xl )) 100 Mg Tab.er.24h, 100 MG PO DAILY for htn, #30 Prescribed by: SEBLE MALIK on 04/11/19 1521 Omeprazole (Omeprazole) 40 Mg Capsule.dr, 40 MG PO DAILY08, (Reported) Entered as Reported by: VIET YU on 03/25/13 163 Last Action: Converted on 04/11/19753 by SEBLE MALIK Sucralfate (Sucralfate) 1 Gm Tablet, 1 GM PO DAILY for GI, (Reported) Entered as Reported by: Claudette George on 04/11/19 0655 Last Action: Continued on 04/11/19753 by SEBLE MALIK Warfarin Sodium (Warfarin Sodium) 5 Gm Powder, 5 GM MC 1X, (Reported) Entered as Reported by: JORDAN CARLSON on 04/23/13 0600 Last Action: Reviewed on 04/11/19753 by SEBLE MALIK Discontinued Medications Lisinopril/Hydrochlorothiazide (Lisinopril-Hctz 20-12.5 Mg Tab) 1 Each Tablet, 1 TAB PO DAILY for BP, (Reported) Entered as Reported by: Claudette George on 04/11/19655 Last Action: Converted on 04/11/19753 by SEBLE MALIK Metoprolol Succinate (Metoprolol Succinate ( Xl )) 200 Mg Tab.er.24h, 200 MG PO DAILY for BP, (Reported) Entered as Reported by: Claudette George on 04/11/19654 Last Action: Converted on 04/11/19753 by SEBLE LOPEZ MD Apr 11, 2019 15:23
--- NOTE | 2019-04-11 19:18 | NUR ---
5Discharge Note: JODI SEVERINO A[address] [facility] Discharge instructions and discharge home medications reviewed with Patient and a copy given. All questions have been answered and understanding verbalized. The following instructions and handouts were given: correction of lisinopril/hctz dose and bid, no lisinopril 40, metoprolol 100. called her pharmacy and they corrected the dosages. diet CP, stress test. appointments for follow up and stress test. Discontinued lines and drains: IV removed, no lines present on DC.. Patient discharged to home, left wia ambulation with family member by private vehicle.
[2019-04-11] MEDS ORDERED: MAGNESIUM OXIDE 400 MG TABLET PO SCH (21:00)
[2019-04-11] MEDS ORDERED: EZETIMIBE 10 MG TABLET. PO SCH (21:00)
[2019-04-11 23:07] LABS: HEMOGLOBIN A1C 6.1 % (4.8-5.6)
--- NOTE | 2019-04-12 08:45 | CARD ---
MR#: [id number] Date of Study: 04/11/2019 Ordering Physician: CELINA BERNSTEIN, Referring Physician: CELINA BERNSTEIN, Tech: Mckenzie Nolasco APPROVED REPORT EXAM: Two-dimensional and M-mode echocardiogram with Doppler and color Doppler. Other Information Quality : AverageHR: 64bpm Technically limited study due to body habitus. INDICATION Chest Pain RISK FACTORS Hypertension 2D DIMENSIONS RVDd3.7 (2.9-3.5cm)Left Atrium(2D)3.6 (1.6-4.0cm) IVSd1.4 (0.7-1.1cm)Aortic Root(2D)3.3 (2.0-3.7cm) LVDd4.2 (3.9-5.9cm)LVOT Diameter2.1 (1.8-2.4cm) PWd1.3 (0.7-1.1cm)LVDs2.5 (2.5-4.0cm) FS (%) 39.6 %SV56.0 ml LVEF(%)70.6 (>50%) Aortic Valve AoV Peak Altaf.115.8cm/sAoV VTI26.8cm AO Peak GR.5.4mmHgLVOT VTI 20.71cm AO Mean GR.3mmHg Mitral Valve MV E Sagjyrkk07.9cm/sMV E Peak Gr.3mmHg MV DECEL [id number] A Vahtrhmd95.6cm/s MV E Mean Gr.2mmHgE/A Ratio0.9 TDI Lateral E' P. V9.29cm/sMedial E' P. V8.40cm/s E/Lateral E'7.1E/Medial E'7.8 Tricuspid Valve TR P. Imkvdrpa118lf/sRAP [id number] TR Peak Gr.[id number] Pulmonary Vein S1 Fijkyven14.6cm/sS2 Crqrvhzm68.32cm/s D2 Ydojwtzx68.3cm/sPVa [id number] LEFT VENTRICLE The left ventricle is normal size. There is mild to moderate concentric left ventricular hypertrophy. The left ventricular systolic function is normal. The Ejection Fraction is 60-65%. There is normal L V segmental wall motion. Transmitral Doppler flow pattern is Grade I-abnormal relaxation pattern. RIGHT VENTRICLE The right ventricle is normal size. There is normal right ventricular wall thickness. The right ventr icular systolic function is normal. ATRIA The left atrium size is normal. The right atrium size is normal. The interatrial septum is intact wit h no evidence for an atrial septal defect or patent foramen ovale as noted on 2-D or Doppler imaging. AORTIC VALVE The aortic valve is thickened but opens well. Doppler and Color Flow revealed no significant aortic r egurgitation. There is no significant aortic valvular stenosis. MITRAL VALVE The mitral valve is normal in structure and function. There is no evidence of mitral valve prolapse. There is no mitral valve stenosis. Doppler and Color-flow revealed trace mitral regurgitation. TRICUSPID VALVE The tricuspid valve is normal in structure and function. Doppler and Color Flow revealed trace tricus pid regurgitation with an estimated PAP of 35 mmHg. There is no tricuspid valve stenosis. PULMONIC VALVE The pulmonic valve is not well visualized. Doppler and Color Flow revealed trace pulmonic valvular re gurgitation. GREAT VESSELS The aortic root is normal in size. The IVC is normal in size and collapses >50% with inspiration. PERICARDIAL EFFUSION There is no evidence of significant pericardial effusion. Critical Notification Critical Value: No <Conclusion> The left ventricular systolic function is normal. The Ejection Fraction is 60-65%. There is normal LV segmental wall motion. Transmitral Doppler flow pattern is Grade I-abnormal relaxation pattern. Trace mitral regurgitation. Trace tricuspid regurgitation with an estimated PAP of 35 mmHg. There is no evidence of significant pericardial effusion. Signed by : Dixon Puentes, Electronically Approved : 04/12/2019 08:45:03
[2019-04-12] MEDS ORDERED: METOPROLOL SUCC 24HR ER 100 MG TAB.ER.24H. PO SCH (09:00)
[2019-04-12] MEDS ORDERED: LISINOPRIL 20 MG TABLET PO SCH (09:00)
== END 2019-04-11 16:50 | disposition home or self-care (01) | DRG 305 ==
LOC: ER 21:13 → 2 SOUTH 23:39 → ER 04-11 00:36
PROVIDERS: ADMIT Internal Medicine; ATTEND Internal Medicine
DX: I16.0 Hypertensive urgency (principal); E66.9 Obesity, unspecified; E78.5 Hyperlipidemia, unspecified; F41.9 Anxiety disorder, unspecified; I10 Essential (primary) hypertension; K21.9 Gastro-esophageal reflux disease without esophagitis; Z68.36 Body mass index [BMI] 36.0-36.9, adult; Z82.3 Family history of stroke; Z82.49 Family history of ischemic heart disease and other diseases of the circulatory system; Z83.3 Family history of diabetes mellitus; Z86.718 Personal history of other venous thrombosis and embolism; Z90.710 Acquired absence of both cervix and uterus; Z96.651 Presence of right artificial knee joint; M19.90 Unspecified osteoarthritis, unspecified site; R07.89 Other chest pain; Z91.030 Bee allergy status; Z79.899 Other long term (current) drug therapy
CPT/HCPCS: 36415; 71045; 71275; 80053; 80061; 83036; 83735; 83880; 84443; 84484; 85025; 85379; 93005; 93306; 96361; 96374; J0360; J7030; Q9967; 99291-25; G0378

== ENCOUNTER 2019-10-31 11:46 | Observation (INO) | payer MEDICARE ==
[~2019-10-31] VITALS: Ht 162.6 cm; Wt 93.2 kg
[~2019-10-31 11:46] MED LIST changes: +AMLO10TA8 PO; +HYDR12.575 PO; +LISI1TAB19 PO; +METO-247 PO; +METO200T46 PO; +MULT-445 PO; -MULT1TAB52 PO; +SUCR1TAB PO
--- NOTE | 2019-10-31 12:22 | PHYS DOC ---
Past Medical History Past Medical History: Hypertension Past Surgical History: Hysterectomy Additional Past Surgical Histo: PARTIAL KNEE Smoking Status: Never Smoker Alcohol Use: Occasionally Drug Use: None General Adult EDM: Chief Complaint: CHEST PAIN HPI: HPI: Patient is a 64 year old p/w chest pain. left side sharp and pressure "bad belching action" going on was at dentist bp 180/110 then left side around to scapula and tingling left arm. bp here 230/110. previous pe after knee surgery was on coumadin but no longer pain for one hour. meds: metformin see list. all: bee venom. Review of Systems: Review of Systems: Constitutional: Denies fever or chills. [] Eyes: Denies change in visual acuity. [] HENT: Denies nasal congestion or sore throat. [] Respiratory: Denies cough or shortness of breath. [] Cardiovascular: Denies chest pain or edema. [] GI: Denies abdominal pain, nausea, vomiting, bloody stools or diarrhea. [] : Denies dysuria. [] Musculoskeletal: Denies back pain or joint pain. [] Integument: Denies rash. [] Neurologic: Denies headache, focal weakness or sensory changes. [] Endocrine: Denies polyuria or polydipsia. [] Lymphatic: Denies swollen glands. [] Psychiatric: Denies depression or anxiety. [] Heart Score: HEART Score for Chest Pain: HEART Score for Chest Pain Response (Comments) Value History Moderately Suspicious 1 ECG Nonspecific Repolarizatio 1 Age >45 - < 65 1 Risk Factors 1 or 2 Risk Factors 1 Troponin < Normal Limit 0 Total 4 Risk Factors: Risk Factors: DM, Current or recent (<one month) smoker, HTN, HLP, family history of CAD, obesity. Risk Scores: Score 0 - 3: 2.5% MACE over next 6 weeks - Discharge Home Score 4 - 6: 20.3% MACE over next 6 weeks - Admit for Clinical Observation Score 7 - 10: 72.7% MACE over next 6 weeks - Early Invasive Strategies Allergies: Allergies: Allergies Coded Allergies Type Severity Reaction Last Updated Verified bee venom protein (honey bee) Allergy Severe Shortness of Air 04/11/19 Yes Physical Exam: PE: Constitutional: Well developed, well nourished, no acute distress, non-toxic appearance. [] HENT: Normocephalic, atraumatic, bilateral external ears normal, oropharynx moist, no oral exudates, nose normal. [] Eyes: PERRLA, EOMI, conjunctiva normal, no discharge. [] Neck: Normal range of motion, no tenderness, supple, no stridor. [] Cardiovascular:Heart rate regular rhythm, no murmur [] Lungs & Thorax: Bilateral breath sounds clear to auscultation [] Abdomen: Bowel sounds normal, soft, no tenderness, no masses, no pulsatile mas ses. [] Skin: Warm, dry, no erythema, no rash. [] Back: No tenderness, no CVA tenderness. [] Extremities: No tenderness, no cyanosis, no clubbing, ROM intact, no edema. [] Neurologic: Alert and oriented X 3, normal motor function, normal sensory function, no focal deficits noted. [] Psychologic: Affect normal, judgement normal, mood normal. [] Current Patient Data: Vital Signs: Vital Signs Date Time Temp Pulse Resp B/P (MAP) Pulse Ox O2 Delivery O2 Flow Rate FiO2 10/31/19 12:00 98.2 64 22 230/110 (150) 98 Room Air 98.2 EKG: EKG: nsr no stemi, nonsp inferior changes noted.[] Radiology/Procedures: Radiology/Procedures: [] Impression: Findings: Elevation or focal eventration of the right hemidiaphragm is again evident and is unchanged. No acute lung infiltrate or pleural effusion or pulmonary edema or lung mass or pneumothorax is seen. The heart size is enlarged but stable. The pulmonary vasculature, mediastinum and both maurizio are unremarkable. Impression: No acute radiographic abnormality is seen. Electronically signed by: Jordan Mckinney MD (10/31/2019 12:42 PM) [id number] DICTATED and SIGNED BY: JORDAN MCKINNEY MD DATE: 10/31/19 1242 Course & Med Decision Making: Course & Med Decision Making Pertinent Labs and Imaging studies reviewed. (See chart for details) []herat score 6 check ddimer given hx of pe in past. 64-year-old female with a history of hypertension presenting with chest pain. Blood pressure was quite elevated she is improved after Nitropaste and a mlodipine first troponin is negative EKG showed nonspecific changes. I think of the heart score I think she warrants admission for observation probable re- stratification and blood pressure control. Paged Dr. Hardy at 1:45 PM patient was given Nitropaste amlodipine and aspirin in the emergency room d- dimer was negative I had low suspicion for this chest x-ray clear. It does not sound the dissection at all. Currently chest pain is better Dragon Disclaimer: Dragon Disclaimer: This electronic medical record was generated, in whole or in part, using a voice recognition dictation system. Departure Departure Impression: Primary Impression: Hypertension, accelerated Additional Impression: Chest pain Disposition: ADMITTED INPATIENT Admitting Physician: ZAKIYA Condition: STABLE Referrals: ASHLY MACK MD (PCP) Justicifation of Admission Dx: Justifications for Admission: Justification of Admission Dx: Yes Hypertension: Unstable Variant OTF GELLER MD Oct 31, 2019 12:22
[2019-10-31 12:27] LABS: BASO # 0.1 x10^3/uL (0.0-0.2); BASO % 1 % (0-3); EOS # 0.2 x10^3/uL (0.0-0.7); EOS % 3 % (0-3); HEMATOCRIT 42.3 % (36.0-47.0); HEMOGLOBIN 14.9 g/dL (12.0-15.5); LYMPH # 2.3 x10^3/uL (1.0-4.8); LYMPH % 37 % (24-48); MEAN CORPUSCULAR HEMOGLOBIN 31 pg (25-35); MEAN CORPUSCULAR HGB CONC 35 g/dL (31-37); MEAN CORPUSCULAR VOLUME 89 fL (79-100); MONO # 0.5 x10^3/uL (0.0-1.1); MONO % 8 % (0-9); NEUT # 3.2 x10^3/uL (1.8-7.7); NEUT % 51 % (31-73); PLATELET COUNT 274 x10^3/uL (140-400); RED BLOOD COUNT 4.76 x10^6/uL (3.50-5.40); RED CELL DISTRIBUTION WIDTH 14.2 % (11.5-14.5); WHITE BLOOD COUNT 6.2 x10^3/uL (4.0-11.0)
[2019-10-31] MEDS ORDERED: amLODIPine BESYLATE 5 MG TABLET PO ONE (12:30)
[2019-10-31] MEDS ORDERED: NITROGLYCERIN OINT 1 GM PACKET. TP ONE (12:30)
[2019-10-31] MEDS ORDERED: ASPIRIN CHEWABLE 81 MG TABLET. PO ONE (12:30)
[2019-10-31 12:42] LABS: PROTHROMBIN TIME PATIENT 12.2 SEC (11.7-14.0)
[2019-10-31 12:45] LABS: CREATININE 1.1 mg/dL (0.6-1.0); GFR 49.8; POTASSIUM 3.6 mmol/L (3.5-5.1)
--- NOTE | 2019-10-31 12:45 | RAD ---
PORTABLE CHEST 1V Clinical indications: Left-sided chest pain that started this a.m. COMPARISON: April 10, 2019. Findings: Elevation or focal eventration of the right hemidiaphragm is again evident and is unchanged. No acute lung infiltrate or pleural effusion or pulmonary edema or lung mass or pneumothorax is seen. The heart size is enlarged but stable. The pulmonary vasculature, mediastinum and both maurizio are unremarkable. Impression: No acute radiographic abnormality is seen. Electronically signed by: Ehsan Mckinney MD (10/31/2019 12:42 PM) [id number]
[2019-10-31 12:51] LABS: ALBUMIN 3.7 g/dL (3.4-5.0); TOTAL BILIRUBIN 0.3 mg/dL (0.2-1.0); TOTAL PROTEIN 7.4 g/dL (6.4-8.2)
[2019-10-31 12:53] LABS: D-DIMER 0.27 ug/mlFEU (0.00-0.50)
--- NOTE | 2019-10-31 15:05 | PDOC1 ---
History and Physical Date of Admission Date of Admission DATE: 10/31/19 TIME: 15:05 Identification/Chief Complaint Chief Complaint CC left side chest pain sharp and pressure BEGAN TODAY after arriving home from her dentist appointment "bad belching action" going on was at dentist today with hypertension bp 180/110 then left side around to scapula and tingling left arm. bp here 230/110. notes some stress at work as well Past Medical History Cardiovascular: HTN, Hyperlipidemia GI: GERD Psych: Anxiety Musculoskeletal: Osteoarthritis, Other Past Surgical History Past Surgical History: Tubal Ligation, Tonsillectomy, Hysterectomy Family History Family History: Coronary Artery Disease, Diabetes, Hypertension, Stroke Social History Smoke: No ALCOHOL: none Drugs: None Current Problem List Problem List Problems Medical Problems: (1) Chest pain Status: Acute Current Medications Current Medications Current Medications Aspirin (Aspirin Chewable) 324 mg 1X ONCE PO ; Start 10/31/19 at 12:30; Stop 10/31/19 at 12:31; Status DC Nitroglycerin (Nitro-Bid Oint) 1 inch 1X ONCE TP Last administered on 10/31/19at 12:32; Start 10/31/19 at 12:30; Stop 10/31/19 at 12:31; Status DC Amlodipine Besylate (Norvasc) 10 mg 1X ONCE PO Last administered on 10/31/19at 12:33; Start 10/31/19 at 12:30; Stop 10/31/19 at 12:31; Status DC Active Scripts Active Hydrochlorothiazide Capsule (Hydrochlorothiazide) 12.5 Mg Capsule 12.5 Mg PO DAILY Metoprolol Succinate ( Xl ) (Metoprolol Succinate) 100 Mg Tab.er.24h 100 Mg PO DAILY Reported Sucralfate 1 Gm Tablet 1 Gm PO DAILY Amlodipine Besylate 10 Mg Tablet 10 Mg PO DAILY Warfarin Sodium 5 Gm Powder 5 Gm MC 1X Magnesium (Magnesium Oxide) 500 Mg Capsule 500 Mg PO HS Vitamin B-12 (Cyanocobalamin (Vitamin B-12)) 1,000 Mcg Tablet 2,000 Mcg PO BID Vitamin D3 1,000 Unit Tablet (Ca Cmb No.1/Vit D3/B-6/Fa/B12) 1 Each Tablet 3 Each PO HS Vitamin C (Ascorbic Acid) 1,000 Mg Tablet 5,000 Mg PO DAILY08 Zetia (Ezetimibe) 10 Mg Tablet 10 Mg PO HS Omeprazole 40 Mg Capsule.dr 40 Mg PO DAILY08 Allergies Allergies: Coded Allergies: bee venom protein (honey bee) (Verified Allergy, Severe, Shortness of Air, 04/11/19) patient stated allergic to bee sting swell badly and had sob ROS Review of System Constitutional: Denies fever or chills. [] Eyes: Denies change in visual acuity. [] HENT: Denies nasal congestion or sore throat. [] Respiratory: Denies cough or shortness of breath. [] Cardiovascular: Denies chest pain now, or edema. [] GI: Denies abdominal pain, nausea, vomiting, bloody stools or diarrhea. [] pos some GERD SYMPTOMS : Denies dysuria. [] Musculoskeletal: Denies back pain or joint pain. [] Integument: Denies rash. [] Neurologic: Denies headache, focal weakness or sensory changes. [] Endocrine: Denies polyuria or polydipsia. [] Lymphatic: Denies swollen glands. [] Psychiatric: Denies depression or anxiety. [] 14 pt ros otherwise neg Breast: No New/Changing Breast Lumps, No Nipple changes, No Nipple discharge, No Other Respiratory: No: Cough, Hemoptysis, Orthopnea, Pleuritic Pain, Shortness of breath, SOB with excertion, Sputum Changes, Stridor, Tachypnea, Wheezing, Other Cardiovascular: yes Chest Pain; No Palpitations, No Orthopnea, No Paroxysmal Noc. Dyspnea, No Edema, No Lt Headedness, No Other Genitourinary: No Dysuria, No Frequency, No Incontinence, No Hematuria, No Retention, No Discharge, No Urgency, No Pain, No Flank Pain, No Other, No , No , No , No , No , No , No Musculoskeletal: No Gait Disturbance, No Joint Pain, No Joint Stiffness, No Joint Swelling, No Muscle Pain, No Muscular Weakness, No Pain In:, No Swelling In:, No Other Physical Exam Physical Exam Constitutional: Well developed, well nourished, no acute distress, non-toxic appearance. [] HENT: Normocephalic, atraumatic, bilateral external ears normal, oropharynx moist, no oral exudates, nose normal. [] Eyes: PERRLA, EOMI, conjunctiva normal, no discharge. [] Neck: Normal range of motion, no tenderness, supple, no stridor. [] Cardiovascular:Heart rate regular rhythm, no murmur [] Lungs & Thorax: Bilateral breath sounds clear to auscultation [] Abdomen: Bowel sounds normal, soft, no tenderness, no masses, no pulsatile masses. [] Skin: Warm, dry, no erythema, no rash. [] Back: No tenderness, no CVA tenderness. [] Extremities: No tenderness, no cyanosis, no clubbing, ROM intact, no edema. [] Neurologic: Alert and oriented X 3, normal motor function, normal sensory function, no focal deficits noted. [] Psychologic: Affect normal, judgment normal, mood normal. [] General: Alert, Oriented X3, Cooperative, No acute distress HEENT: EOMI, Mucous membr. moist/pink Lungs: Clear to auscultation, Normal air movement Heart: RRR Breasts: Not examined Abdomen: Normal bowel sounds, Soft Rectal Exam: not examined PELVIC: Examination not indicated Extremities: No cyanosis Skin: No breakdown Neuro: Normal speech, Cranial nerves 3-12 NL Psych/Mental Status: Mental status NL, Mood NL Vitals Vitals Vital Signs Date Time Temp Pulse Resp B/P (MAP) Pulse Ox O2 Delivery O2 Flow Rate FiO2 10/31/19 13:54 58 185/84 (117) 97 Room Air 10/31/19 12:00 98.2 22 98.2 Labs Labs Laboratory Tests Test 10/31/19 11:54 White Blood Count 6.2 x10^3/uL (4.0-11.0) Red Blood Count 4.76 x10^6/uL (3.50-5.40) Hemoglobin 14.9 g/dL (12.0-15.5) Hematocrit 42.3 % (36.0-47.0) Mean Corpuscular Volume 89 fL (79-100) Mean Corpuscular Hemoglobin 31 pg (25-35) Mean Corpuscular Hemoglobin Concent 35 g/dL (31-37) Red Cell Distribution Width 14.2 % (11.5-14.5) Platelet Count 274 x10^3/uL (140-400) Neutrophils (%) (Auto) 51 % (31-73) Lymphocytes (%) (Auto) 37 % (24-48) Monocytes (%) (Auto) 8 % (0-9) Eosinophils (%) (Auto) 3 % (0-3) Basophils (%) (Auto) 1 % (0-3) Neutrophils # (Auto) 3.2 x10^3/uL (1.8-7.7) Lymphocytes # (Auto) 2.3 x10^3/uL (1.0-4.8) Monocytes # (Auto) 0.5 x10^3/uL (0.0-1.1) Eosinophils # (Auto) 0.2 x10^3/uL (0.0-0.7) Basophils # (Auto) 0.1 x10^3/uL (0.0-0.2) Prothrombin Time 12.2 SEC (11.7-14.0) Prothromb Time International Ratio 0.9 (0.8-1.1) D-Dimer (Daija) 0.27 ug/mlFEU (0.00-0.50) Sodium Level 141 mmol/L (136-145) Potassium Level 3.6 mmol/L (3.5-5.1) Chloride Level 104 mmol/L (98-107) Carbon Dioxide Level 28 mmol/L (21-32) Anion Gap 9 (6-14) Blood Urea Nitrogen 16 mg/dL (7-20) Creatinine 1.1 mg/dL (0.6-1.0) Estimated GFR (Cockcroft-Gault) 49.8 BUN/Creatinine Ratio 15 (6-20) Glucose Level 112 mg/dL (70-99) Calcium Level 9.0 mg/dL (8.5-10.1) Total Bilirubin 0.3 mg/dL (0.2-1.0) Aspartate Amino Transf (AST/SGOT) 29 U/L (15-37) Alanine Aminotransferase (ALT/SGPT) 65 U/L (14-59) Alkaline Phosphatase 87 U/L (46-116) Troponin I Quantitative < 0.017 ng/mL (0.000-0.055) CO-Wkp-H-Type Natriuretic Peptide 130 pg/mL (0-124) Total Protein 7.4 g/dL (6.4-8.2) Albumin 3.7 g/dL (3.4-5.0) Albumin/Globulin Ratio 1.0 (1.0-1.7) Laboratory Tests Test 10/31/19 11:54 White Blood Count 6.2 x10^3/uL (4.0-11.0) Red Blood Count 4.76 x10^6/uL (3.50-5.40) Hemoglobin 14.9 g/dL (12.0-15.5) Hematocrit 42.3 % (36.0-47.0) Mean Corpuscular Volume 89 fL (79-100) Mean Corpuscular Hemoglobin 31 pg (25-35) Mean Corpuscular Hemoglobin Concent 35 g/dL (31-37) Red Cell Distribution Width 14.2 % (11.5-14.5) Platelet Count 274 x10^3/uL (140-400) Neutrophils (%) (Auto) 51 % (31-73) Lymphocytes (%) (Auto) 37 % (24-48) Monocytes (%) (Auto) 8 % (0-9) Eosinophils (%) (Auto) 3 % (0-3) Basophils (%) (Auto) 1 % (0-3) Neutrophils # (Auto) 3.2 x10^3/uL (1.8-7.7) Lymphocytes # (Auto) 2.3 x10^3/uL (1.0-4.8) Monocytes # (Auto) 0.5 x10^3/uL (0.0-1.1) Eosinophils # (Auto) 0.2 x10^3/uL (0.0-0.7) Basophils # (Auto) 0.1 x10^3/uL (0.0-0.2) Prothrombin Time 12.2 SEC (11.7-14.0) Prothromb Time International Ratio 0.9 (0.8-1.1) D-Dimer (Daija) 0.27 ug/mlFEU (0.00-0.50) Sodium Level 141 mmol/L (136-145) Potassium Level 3.6 mmol/L (3.5-5.1) Chloride Level 104 mmol/L (98-107) Carbon Dioxide Level 28 mmol/L (21-32) Anion Gap 9 (6-14) Blood Urea Nitrogen 16 mg/dL (7-20) Creatinine 1.1 mg/dL (0.6-1.0) Estimated GFR (Cockcroft-Gault) 49.8 BUN/Creatinine Ratio 15 (6-20) Glucose Level 112 mg/dL (70-99) Calcium Level 9.0 mg/dL (8.5-10.1) Total Bilirubin 0.3 mg/dL (0.2-1.0) Aspartate Amino Transf (AST/SGOT) 29 U/L (15-37) Alanine Aminotransferase (ALT/SGPT) 65 U/L (14-59) Alkaline Phosphatase 87 U/L (46-116) Troponin I Quantitative < 0.017 ng/mL (0.000-0.055) BY-Ynp-U-Type Natriuretic Peptide 130 pg/mL (0-124) Total Protein 7.4 g/dL (6.4-8.2) Albumin 3.7 g/dL (3.4-5.0) Albumin/Globulin Ratio 1.0 (1.0-1.7) VTE Prophylaxis Ordered VTE Prophylaxis Devices: Yes VTE Pharmacological Prophylaxi: Yes Assessment/Plan Assessment/Plan Impression: Hypertension, accelerated GERD MORBID OBESITY Chest pain ADMITTED CVC BED CARDIOLOGY CONSULT TREND TROPONIN I IV BP CONTROL PRN HYDRALAZINE 10 MG Q 4 HRS PRN BP SUPPORT DVT prophylaxis home meds now D/W ER DR Delatorrefation of Admission Dx: Justifications for Admission: Justification of Admission Dx: Yes Hypertension: Unstable Variant YARIEL SOTELO MD Oct 31, 2019 15:05
[2019-10-31] MEDS ORDERED: ACETAMINOPHEN 500 MG TABLET PO ONE (15:30)
[2019-10-31 15:43] VITALS: BP 169/83
[2019-10-31] MEDS ORDERED: LISI1TAB19 PO (16:14)
[2019-10-31] MEDS ORDERED: hydrALAZINE 20 MG/ML VIAL. IVP PRN (16:45)
[2019-10-31 19:34] VITALS: BP 160/92
[2019-10-31] MEDS: METOPROLOL SUCC 24HR ER 100 MG TAB.ER.24H. PO SCH (19:45)
[2019-10-31] MEDS: hydroCHLOROthiazide 12.5 MG CAPSULE PO SCH (20:28)
[2019-10-31] MEDS: LISINOPRIL 20 MG TABLET PO SCH (20:28)
--- NOTE | 2019-10-31 20:33 | EKG ---
[facility] [address] [place] [address] Test Date: 2019-10-31 Test Time: 11:53:29 Pat Name: JODI SEVERINO Department: Room: Gender: F Towel Hemmer: : 1955 Requested By: OTF GELLER Order Number: [id number] Reading MD: Measurements Intervals [place] Rate: 65 P: 43 ID: [id number] QRS: 1 QRSD: 76 T: 9 QT: 390 QTc: 406 Interpretive Statements SINUS RHYTHM R-S TRANSITION ZONE IN V LEADS DISPLACED TO THE RIGHT NO SPECIFIC ECG ABNORMALITIES RI6.01 No previous ECG available for comparison
[2019-10-31] MEDS ORDERED: ACET325T9 PO (20:46)
[2019-10-31] MEDS ORDERED: EZETIMIBE 10 MG TABLET. PO SCH (21:00)
[2019-10-31] MEDS ORDERED: MAGNESIUM OXIDE 400 MG TABLET PO SCH ×2 (21:00)
[2019-10-31] MEDS ORDERED: CHOLECALCIFEROL (VITAMIN D3) 1,000 UNIT TABLET PO SCH (21:00)
[2019-10-31] MEDS: ACETAMINOPHEN 325 MG TABLET. PO PRN (21:01)
[2019-10-31 23:00] VITALS: BP 144/85
[2019-11-01 04:01] VITALS: BP 158/77
[2019-11-01] MEDS: ACETAMINOPHEN 325 MG TABLET. PO PRN (04:08)
[2019-11-01 07:00] VITALS: BP 141/77
[2019-11-01] MEDS ORDERED: PANTOPRAZOLE 40 MG TABLET.DR. PO SCH (07:30)
[2019-11-01] MEDS ORDERED: METOPROLOL SUCC 24HR ER 100 MG TAB.ER.24H. PO SCH (09:00)
[2019-11-01] MEDS ORDERED: CYANOCOBALAMIN (VITAMIN B-12) 1,000 MCG TABLET. PO SCH (09:00)
[2019-11-01] MEDS ORDERED: ASCORBIC ACID 500 MG TABLET PO SCH (09:00)
[2019-11-01] MEDS: hydroCHLOROthiazide 12.5 MG CAPSULE PO SCH (09:40)
[2019-11-01] MEDS: LISINOPRIL 20 MG TABLET PO SCH (09:40)
[2019-11-01] MEDS: METOPROLOL SUCC 24HR ER 100 MG TAB.ER.24H. PO SCH (09:41)
--- NOTE | 2019-11-01 10:14 | NUR ---
SS following for discharge planning. SS reviewed pt chart and discussed with pt RN. Pt is from home and is currently on room air. ECHO ordered. SS will continue to follow for discharge planning.
[2019-11-01 11:00] VITALS: BP 179/86
--- NOTE | 2019-11-01 11:01 | RAD ---
Examination: Ultrasound abdomen complete HISTORY: History of right upper quadrant pain COMPARISON: 03/20/2015 FINDINGS: The aorta, IVC, pancreas are not well-visualized due to bowel gas. The liver length measures 15.1 cm. Moderate increased echogenicity identified in the liver likely hepatic steatosis. No evidence of gallstones. The gallbladder wall thickness measures 1.6 mm. The right kidney measures 10.0 x 5.0 x 5.0 cm . The left kidney measures 11.1 x 3.9 x 4.1 cm. The spleen measures 8.2 cm in length. IMPRESSION: 1. Hepatic steatosis. Electronically signed by: Brent Humphrey MD (11/01/2019 10:58 AM) [id number]
--- NOTE | 2019-11-01 12:28 | CARD ---
MR#: [id number] Date of Study: 11/01/2019 Ordering Physician: FABIANO STANLEY, Referring Physician: FABIANO STANLEY, Tech: Katherine Perkins [facility] APPROVED REPORT EXAM: Two-dimensional and M-mode echocardiogram with Doppler and color Doppler. Other Information Quality : Good INDICATION Chest Pain 2D DIMENSIONS RVDd3.2 (2.9-3.5cm)Left Atrium(2D)3.8 (1.6-4.0cm) IVSd1.0 (0.7-1.1cm)Aortic Root(2D)2.9 (2.0-3.7cm) LVDd4.9 (3.9-5.9cm)LVOT Diameter2.2 (1.8-2.4cm) PWd0.8 (0.7-1.1cm)LVDs2.5 (2.5-4.0cm) FS (%) 30.0 %SV88.5 ml LVEF(%)60.0 (>50%) Aortic Valve AoV Peak Altaf.150.9cm/sAoV VTI28.2cm AO Peak GR.9.1mmHgLVOT Peak Altaf.133.7cm/s LVOT VTI 27.26cmAO Mean GR.4mmHg MARIAA (VMAX)3.56pb3AEK (VTI)3.61cm2 Mitral Valve MV E Nugjuury73.1cm/sMV DECEL [id number] MV A Nyrwdbwk37.4cm/sMV FGC88tw E/A Ratio0.8MVA (PHT)2.59cm2 TDI E/Lateral E'7.8E/Medial E'11.9 Pulmonary Vein S1 Mjwiqeec37.8cm/sD2 Zmxskpch21.5cm/s LEFT VENTRICLE The left ventricle is normal size. There is normal left ventricular wall thickness. The left ventricu lar systolic function is normal. The Ejection Fraction is 55-60%. There is normal LV segmental wall m otion. Transmitral Doppler flow pattern is Grade I-abnormal relaxation pattern. RIGHT VENTRICLE The right ventricle is normal size. There is normal right ventricular wall thickness. The right ventr icular systolic function is normal. ATRIA The left atrium size is normal. The right atrium size is normal. The interatrial septum is intact wit h no evidence for an atrial septal defect or patent foramen ovale as noted on 2-D or Doppler imaging. AORTIC VALVE The aortic valve is normal in structure and function. Doppler and Color Flow revealed no significant aortic regurgitation. There is no significant aortic valvular stenosis. MITRAL VALVE The mitral valve is normal in structure and function. There is no evidence of mitral valve prolapse. There is no mitral valve stenosis. Doppler and Color Flow revealed no mitral valve regurgitation note d. TRICUSPID VALVE The tricuspid valve is normal in structure and function. Doppler and Color Flow revealed no tricuspid valve regurgitation noted. There is no tricuspid valve stenosis. PULMONIC VALVE The pulmonic valve is not well visualized. Doppler and Color Flow revealed no pulmonic valvular regur gitation. There is no pulmonic valvular stenosis. GREAT VESSELS The aortic root is normal in size. The ascending aorta is normal in size. The IVC was not visualized. PERICARDIAL EFFUSION There is no evidence of significant pericardial effusion. Critical Notification Critical Value: No <Conclusion> The left ventricular systolic function is normal. The Ejection Fraction is 55-60%. There is normal LV segmental wall motion. Transmitral Doppler flow pattern is Grade I-abnormal relaxation pattern. There is no evidence of significant pericardial effusion. Signed by : Dixon Puentes, Electronically Approved : 11/01/2019 12:27:52
--- NOTE | 2019-11-01 13:32 | PDOC2 ---
CARDIOLOGY CONSULT NOTE CHIEF COMPLAINT: Headache, high blood pressure HPI: 64 y.o woman admitted with headaches. Went to her dentist and noted to have high BP. Sent home but on the way home felt bad and came to ER. Since admission BP have been stable. Denies any recent angina. She has had some GERD. No syncope or palpitations. No new stressors or meds. No new HF symptoms. PMHX: HTN DLP Obesity SOCHX: No alcohol, tob or illicits FAMHX: NC CURRENT MEDS: Current Medications Medications (Trade) Dose Ordered Sig/Mariella Route PRN Reason Start Time Stop Time Status Last Admin Dose Admin Acetaminophen (Tylenol) 1,000 mg 1X ONCE PO 10/31/19 15:30 10/31/19 15:31 DC 10/31/19 15:27 Cyanocobalamin (Vitamin B-12) 2,000 mcg BID PO 11/01/19 09:00 11/01/19 09:39 EZETIMIBE (Zetia) 10 mg HS PO 10/31/19 21:00 10/31/19 20:28 Ascorbic Acid (Vitamin C) 1,000 mg DAILY PO 11/01/19 09:00 11/01/19 09:43 Lisinopril (Prinivil) 20 mg BID PO 10/31/19 21:00 11/01/19 09:40 Pantoprazole Sodium (Protonix) 40 mg DAILYAC PO 11/01/19 07:30 11/01/19 09:39 Hydrochlorothiazide (Microzide) 12.5 mg BID PO 10/31/19 21:00 11/01/19 09:40 Vitamin D (Vitamin D3) 3,000 unit QHS PO 10/31/19 21:00 10/31/19 20:27 Metoprolol Succinate (Toprol Xl) 100 mg DAILY PO 10/31/19 19:45 11/01/19 09:41 Magnesium Oxide (Magnesium Oxide) 400 mg HS PO 10/31/19 21:00 10/31/19 21:01 Acetaminophen (Tylenol) 650 mg PRN Q6HRS PRN PO PAIN 10/31/19 21:00 11/01/19 04:08 ALLERGIES: Allergies Coded Allergies Type Severity Reaction Last Updated Verified bee venom protein (honey bee) Allergy Severe Shortness of Air 04/11/19 Yes Blpfvjl-Oem-Zgs Reductase Inhibitor Adverse Reaction Severe 11/01/19 Yes ROS: Negative for 01/28 systems reviewed unless noted above in HPI PHYSICAL EXAM: Vital Signs/I&O: Vital Signs Date Time Temp Pulse Resp B/P (MAP) Pulse Ox O2 Delivery O2 Flow Rate FiO2 11/01/19 11:00 97.6 59 20 179/86 (117) 99 Room Air 97.6 I & O 10/31/19 10/31/19 11/01/19 15:00 23:00 07:00 Intake Total 0 ml 300 ml Balance 0 ml 300 ml Physical Exam: GEN.: No apparent distress. Alert and oriented. HEENT: Head is normocephalic, atraumatic NECK: Supple. LUNGS: Clear to auscultation. HEART: RRR, S1, S2 present. Peripheral pulses intact ABDOMEN: Soft, nontender. Positive bowel sounds. EXTREMITIES: Without any cyanosis. NEUROLOGIC: Normal speech, normal tone PSYCHIATRIC: Normal affect, normal mood. SKIN: No ulcerations DIAGNOSTIC TESTING: Labs reviewed. Normal BNP, EKG, Trop and echo. ASSESSMENT: 1. Hypertensive urgency PLAN: 1. Restart home BP meds, I suspect there is some issue with non-compliance. Will plan for outpt f/u. Ok to DC home on current meds with addition of amlodipine 10mg daily. BP much better. Negative troponin and normal echo. Thanks Will plan for outpt stress testing. Thanks RENU CALLEJAS MD Nov 01, 2019 13:32
--- NOTE | 2019-11-01 14:00 | PDOC3 ---
Discharge Summary Visit Information Date of Admission: Oct 31, 2019 Date of Discharge: Nov 01, 2019 Final Diagnosis Problems Medical Problems: (1) Chest pain Status: Acute Brief Hospital Course Allergies Allergies Coded Allergies Type Severity Reaction Last Updated Verified bee venom protein (honey bee) Allergy Severe Shortness of Air 04/11/19 Yes Prfxauz-Gkw-Vkx Reductase Inhibitor Adverse Reaction Severe 11/01/19 Yes Vital Signs GENERAL: No apparent distress. Alert and oriented. HEENT: Head normocephalic, atraumatic. NECK: Supple LUNGS: Clear to auscultation. HEART: RRR, S1, S2 present, pulses intact ABDOMEN: Soft, positive bowel sounds. EXTREMITIES: No cyanosis or edema. NEUROLOGIC: Normal speech, normal tone PSYCHIATRIC: Normal affect, normal mood. SKIN: No ulceration. Vital Signs Date Time Temp Pulse Resp B/P (MAP) Pulse Ox O2 Delivery O2 Flow Rate FiO2 11/01/19 11:00 97.6 59 20 179/86 (117) 99 Room Air 97.6 Lab Results Laboratory Tests Test 10/31/19 11:54 10/31/19 17:00 10/31/19 19:40 White Blood Count 6.2 x10^3/uL (4.0-11.0) Red Blood Count 4.76 x10^6/uL (3.50-5.40) Hemoglobin 14.9 g/dL (12.0-15.5) Hematocrit 42.3 % (36.0-47.0) Mean Corpuscular Volume 89 fL (79-100) Mean Corpuscular Hemoglobin 31 pg (25-35) Mean Corpuscular Hemoglobin Concent 35 g/dL (31-37) Red Cell Distribution Width 14.2 % (11.5-14.5) Platelet Count 274 x10^3/uL (140-400) Neutrophils (%) (Auto) 51 % (31-73) Lymphocytes (%) (Auto) 37 % (24-48) Monocytes (%) (Auto) 8 % (0-9) Eosinophils (%) (Auto) 3 % (0-3) Basophils (%) (Auto) 1 % (0-3) Neutrophils # (Auto) 3.2 x10^3/uL (1.8-7.7) Lymphocytes # (Auto) 2.3 x10^3/uL (1.0-4.8) Monocytes # (Auto) 0.5 x10^3/uL (0.0-1.1) Eosinophils # (Auto) 0.2 x10^3/uL (0.0-0.7) Basophils # (Auto) 0.1 x10^3/uL (0.0-0.2) Prothrombin Time 12.2 SEC (11.7-14.0) Prothromb Time International Ratio 0.9 (0.8-1.1) D-Dimer (Daija) 0.27 ug/mlFEU (0.00-0.50) Sodium Level 141 mmol/L (136-145) Potassium Level 3.6 mmol/L (3.5-5.1) Chloride Level 104 mmol/L (98-107) Carbon Dioxide Level 28 mmol/L (21-32) Anion Gap 9 (6-14) Blood Urea Nitrogen 16 mg/dL (7-20) Creatinine 1.1 mg/dL (0.6-1.0) Estimated GFR (Cockcroft-Gault) 49.8 BUN/Creatinine Ratio 15 (6-20) Glucose Level 112 mg/dL (70-99) Calcium Level 9.0 mg/dL (8.5-10.1) Total Bilirubin 0.3 mg/dL (0.2-1.0) Aspartate Amino Transf (AST/SGOT) 29 U/L (15-37) Alanine Aminotransferase (ALT/SGPT) 65 U/L (14-59) Alkaline Phosphatase 87 U/L (46-116) Troponin I Quantitative < 0.017 ng/mL (0.000-0.055) < 0.017 ng/mL (0.000-0.055) < 0.017 ng/mL (0.000-0.055) XW-Fno-R-Type Natriuretic Peptide 130 pg/mL (0-124) Total Protein 7.4 g/dL (6.4-8.2) Albumin 3.7 g/dL (3.4-5.0) Albumin/Globulin Ratio 1.0 (1.0-1.7) Laboratory Tests Test 10/31/19 17:00 10/31/19 19:40 Troponin I Quantitative < 0.017 ng/mL (0.000-0.055) < 0.017 ng/mL (0.000-0.055) Brief Hospital Course 64 year old with left sided chest pain sharp and pressure BEGAN TODAY after arriving home from her dentist appointment "bad belching action" going on was at dentist today with hypertension. bp 180/110 then left side around to scapula and tingling left arm. bp here 230/110. notes some stress at work as well. admitted for ACS rule out, HTN urgency. Dx: HTN Urgency suspect chest pain due to HTN urgency. improved after restarting meds. may also be component of GERD. continue PPI therapy. trops and echo WNL continue all home meds. can follow up with cards at discharge. Discharge Information Condition at Discharge: Stable Disposition/Orders: D/C to Home Scheduled Ascorbic Acid (Vitamin C) 1,000 Mg Tablet, 5,000 MG PO DAILY08, (Reported) Entered as Reported by: VIET YU on 03/25/13 1634 Last Action: Converted on 10/31/191656 by RANGEL DE GUZMAN Ca Cmb No.1/Vit D3/B-6/Fa/B12 (Vitamin D3 1,000 Unit Tablet) 1 Each Tablet, 3 EACH PO HS, (Reported) Entered as Reported by: VIET YU on 03/25/13 1635 Last Action: Converted on 10/31/191936 by YARIEL SOTELO MD Cyanocobalamin (Vitamin B-12) (Vitamin B-12) 1,000 Mcg Tablet, 2,000 MCG PO BID, (Reported) Entered as Reported by: VIET YU on 03/25/13 163 Last Action: Continued on 10/31/191656 by RANGEL DE GUZMAN Ezetimibe (Zetia) 10 Mg Tablet, 10 MG PO HS, (Reported) Entered as Reported by: VIET YU on 03/25/13 1632 Last Action: Continued on 10/31/191656 by RANGEL DE GUZMAN Hydrochlorothiazide (Hydrochlorothiazide Capsule ) 12.5 Mg Capsule, 12.5 MG PO DAILY for htn, #30 Prescribed by: SEBLE MALIK on 04/11/19 1521 Lisinopril/Hydrochlorothiazide (Lisinopril-Hctz 20-12.5 Mg Tab) 1 Each Tablet, 1 PO BID for HTN, (Reported) Entered as Reported by: RANGEL DE GUZMAN on 10/31/19 1614 Last Taken: Unknown Dose on Unknown Date & Time Last Action: Converted on 10/31/191656 by RANGEL DE GUZMAN Magnesium Oxide (Magnesium) 500 Mg Capsule, 500 MG PO HS, (Reported) Entered as Reported by: VIET YU on 03/25/131636 Last Action: Converted on 10/31/191936 by YARIEL SOTELO MD Metoprolol Succinate (Metoprolol Succinate ( Xl )) 100 Mg Tab.er.24h, 100 MG PO DAILY for htn, #30 Prescribed by: SEBLE MALIK on 04/11/19 1521 Last Action: Continued on 10/31/191656 by RANGEL DE GUZMAN Omeprazole (Omeprazole) 40 Mg Capsule.dr, 40 MG PO DAILY08, (Reported) Entered as Reported by: VIET YU on 03/25/131631 Last Action: Converted on 10/31/191656 by RANGEL DE GUZMAN Warfarin Sodium (Warfarin Sodium) 5 Gm Powder, 5 GM MC 1X, (Reported) Entered as Reported by: JORDAN CARLSON on 04/23/13 0600 Last Action: HELD on 10/31/191936 by YARIEL SOTELO MD Scheduled PRN Acetaminophen (Tylenol) 325 Mg Tablet, 650 MG PO PRN Q6HRS PRN for , (Reported) Entered as Reported by: VIJAY WILCOX RN on 10/31/192045 Last Action: New Order on 10/31/192045 by VIJAY WILCOX RN Discontinued Medications Amlodipine Besylate (Amlodipine Besylate) 10 Mg Tablet, 10 MG PO DAILY for BP, (Reported) Entered as Reported by: Claudette George on 04/11/19654 Last Action: Discontinued on 10/31/191613 by RANGEL DE GUZMAN Sucralfate (Sucralfate) 1 Gm Tablet, 1 GM PO DAILY for GI, (Reported) Entered as Reported by: Claudette George on 04/11/19654 Last Action: Discontinued on 10/31/191613 by RANGEL DE GUZMAN Justicifation of Admission Dx: Justifications for Admission: Justification of Admission Dx: Yes Hypertension: Unstable Variant CAROLINE NICOLE MD Nov 01, 2019 14:00
[2019-11-01] MEDS ORDERED: CETIRIZINE HCL 10 MG TABLET. PO PRN (14:15)
[2019-11-01 15:00] VITALS: BP 158/86
--- NOTE | 2019-11-01 19:07 | NUR ---
Discharge Note: JODI SEVERINO [place] Discharge instructions and discharge home medications reviewed with Patient and a copy given. All questions have been answered and understanding verbalized. The following instructions and handouts were given: chest pain, hypertension Discontinued lines and drains: IV catheter removed intact. Patient discharged to Home with self care via wheelchair.
== END 2019-11-01 19:09 | disposition home or self-care (01) ==
LOC: ER 11:46 → 2 NORTH 14:07
PROVIDERS: ADMIT Family Medicine; ATTEND Family Medicine
DX: I16.0 Hypertensive urgency (principal); I10 Essential (primary) hypertension; R07.89 Other chest pain; E66.01 Morbid (severe) obesity due to excess calories; E78.5 Hyperlipidemia, unspecified; K21.9 Gastro-esophageal reflux disease without esophagitis; F41.9 Anxiety disorder, unspecified; M19.90 Unspecified osteoarthritis, unspecified site; Z98.51 Tubal ligation status; Z90.49 Acquired absence of other specified parts of digestive tract; Z90.710 Acquired absence of both cervix and uterus; Z79.82 Long term (current) use of aspirin; Z79.01 Long term (current) use of anticoagulants; Z68.35 Body mass index [BMI] 35.0-35.9, adult
CPT/HCPCS: 36415; 71045; 76700; 80053; 83880; 84484; 85025; 85379; 85610; 93005; 93306; 99285; G0378; G0379

== ENCOUNTER → 2019-11-12 | Outpatient (CLI) | payer MEDICARE ==
[2019-11-01 15:00] VITALS: BP 158/86
[~2019-11-12] MED LIST changes: +ACET325T9 PO; +MULT1CAP15 PO; +VITA1TAB19 PO
[2019-11-13 00:10] LABS: HEMOGLOBIN A1C 6.2 % (4.8-5.6)
== END | disposition home or self-care (01) ==
LOC: SURGPAT 14:49
PROVIDERS: ATTEND Orthopaedic Surgery
DX: Z01.818 Encounter for other preprocedural examination (principal); M17.11 Unilateral primary osteoarthritis, right knee; Z96.651 Presence of right artificial knee joint; Z79.899 Other long term (current) drug therapy; Z79.01 Long term (current) use of anticoagulants
CPT/HCPCS: 36415; 82306; 83036; 85730; 86140; 87641

== ENCOUNTER → 2019-11-22 | Outpatient (CLI) | payer MEDICARE ==
[2019-11-01 15:00] VITALS: BP 158/86
[~2019-11-22] MED LIST changes: +ASCO100019 PO; -ASCO10002 PO; -LISI1TAB19 PO; +LISI1TAB37 PO
== END | disposition home or self-care (01) ==
LOC: LAB 14:56
PROVIDERS: ATTEND Orthopaedic Surgery
DX: Z01.818 Encounter for other preprocedural examination (principal); Z11.59 Encounter for screening for other viral diseases; M17.11 Unilateral primary osteoarthritis, right knee; Z96.651 Presence of right artificial knee joint
CPT/HCPCS: U0003-CS

== ENCOUNTER 2019-11-26 06:15 | Inpatient (IN) | payer MEDICARE ==
[2019-11-26] VITALS (10 sets, daily range): BP systolic 106–131; BP diastolic 59–71
[~2019-11-26] VITALS: Ht 162.6 cm; Wt 93.0 kg
[~2019-11-26 06:15] MED LIST changes: +ACETAMINOPHEN 500 MG TABLET PO PRN; +GABAPENTIN 300 MG CAPSULE. PO PRN; +MELOXICAM 7.5 MG TABLET PO PRN; +TRANEXAMIC ACID 1,000 MG in IV NS 50ML -- 1ST BAG INJ ONE
[2019-11-26] MEDS ORDERED: PROCHLORPERAZINE 10 MG/2 ML VIAL. IV PRN (07:00)
[2019-11-26] MEDS ORDERED: fentaNYL PF VIAL 100 MCG/2 ML VIAL IV PRN ×2 (07:00)
[2019-11-26] MEDS ORDERED: ONDANSETRON PF 4 MG/2 ML VIAL. IV PRN (07:00)
[2019-11-26] MEDS ORDERED: MORPHINE SULFATE 2 MG/ML VIAL. IV PRN (07:00)
[2019-11-26] MEDS ORDERED: IV RINGERS,LACTATED 1000ML 1,000 ML IV SCH (07:00)
[2019-11-26] MEDS ORDERED: HYDROmorphone 2 MG/ML VIAL IV PRN (07:00)
[2019-11-26] MEDS ORDERED: ROCURONIUM 50 MG/5 ML VIAL. ONE (07:18)
[2019-11-26] MEDS ORDERED: SEVOFLURANE > 120 MINUTES. IH ONE (07:19)
[2019-11-26] MEDS ORDERED: ONDANSETRON PF 4 MG/2 ML VIAL. ONE (07:19)
[2019-11-26] MEDS ORDERED: MIDAZOLAM HCL/PF 2 MG/2 ML VIAL. ONE (07:19)
[2019-11-26] MEDS ORDERED: LIDOCAINE 2% PF 5 ML VIAL. ONE (07:19)
[2019-11-26] MEDS ORDERED: DEXAMETHASONE SOD PHOS 4 MG/ML VIAL ONE (07:19)
[2019-11-26] MEDS ORDERED: PROPOFOL 10 MG/ML (20ML) VIAL. IV ONE (07:19)
[2019-11-26 07:37] LABS: PROTHROMBIN TIME PATIENT 12.8 SEC (11.7-14.0)
[2019-11-26] MEDS ORDERED: TRANEXAMIC ACID 1,000 MG in IV NS 50ML -- 2ND BAG INJ ONE (08:00)
[2019-11-26] MEDS: MORPHINE SULFATE 5 MG, KETOROLAC 30MG VIAL 30 MG, ROPIVacaine 0.5% PF 60 ML, EPINEPHrin... INT ART ONE ×2 (08:28→09:25)
--- NOTE | 2019-11-26 08:39 | HP ---
ADMIT DATE: 11/26/2019 PREOPERATIVE HISTORY AND PHYSICAL CHIEF COMPLAINT: Right knee pain. HISTORY OF PRESENT ILLNESS: The patient is well known to me from ongoing nonoperative treatment of bilateral knee pain, right much worse than the left, which has required her to cut back on a lot of her desired activities such as ballroom dancing. She has a previous unicondylar medial knee arthroplasty on the right that was done back in [id number] timeframe elsewhere and while she had initial good relief has been consistently painful despite activity modification and physical therapy, likewise a lot of stomach upset issues are occurring with nonsteroidal anti-inflammatories and topicals have given her minimal relief. We had previously discussed revision of this painful unicondylar arthroplasty. PAST MEDICAL HISTORY: Significant for reflux disease, hypertension, hypercholesterolemia. PAST SURGICAL HISTORY: Partial right knee medial replacement April 2013, hysterectomy in 1995. SOCIAL HISTORY: Denies smoking or drug use. Occasional alcohol consumption socially. MEDICATIONS: Include lisinopril, Zetia, metoprolol and omeprazole. ALLERGIES: SHE HAS ALLERGIES TO STATINS. REVIEW OF SYSTEMS: Denies any recent respiratory illness, fever, chills, chest pain, shortness of breath or other constitutional symptoms and is significant for the ongoing bilateral knee pain, right much worse than left. PHYSICAL EXAMINATION: HEENT: Atraumatic, normocephalic. HEART: Regular rate and rhythm. LUNGS: Clear to auscultation bilaterally. ABDOMEN: Benign. VITAL SIGNS: Per admission sheet. EXTREMITIES: Examination of both knees, she has a well-healed incision from unicondylar arthroplasty on the right and joint line tenderness on the right lateral more so than medial with a relatively equal joint line tenderness on the left side. No gross ligament instability. Good patellofemoral tracking bilaterally, but some quadriceps weakness on the right compared to the left. Normal alignment, stability, bilateral hips and ankles. IMAGING DATA: Previous x-rays show development of degenerative changes in the lateral compartment on the right knee. ASSESSMENT: 1. Primary osteoarthritis of both knees. 2. History of unicondylar medial partial knee replacement on the right. TREATMENT PLAN: We had previously talked at length about her treatment options, she is very limited in her activities of daily living at this point and wishes to proceed with definitive treatment, which at this point would be a revision to total knee arthroplasty on the right and we talked through the possibility of infection, nerve or blood vessel damage, medical or other anesthetic complications, continued pain, premature wear or loosening among others. All her questions were answered. She wishes to proceed with surgical evaluation and treatment of a revision to a total knee arthroplasty on the right as of today. COBY OSORIO MD DR: MUNIRA/marianela JOB#: [id number] / [id number]
[2019-11-26] MEDS ORDERED: HYDROmorphone 2 MG/ML VIAL ONE (09:06)
[2019-11-26] MEDS ORDERED: VANCOMYCIN 1 GM VIAL. ONE (09:13)
[2019-11-26] MEDS ORDERED: fentaNYL PF VIAL 100 MCG/2 ML VIAL ONE (09:49)
[2019-11-26] MEDS ORDERED: 0.9 % SODIUM CHLORIDE 10 ML DISP.SYRIN. IV PRN (10:00)
[2019-11-26] MEDS ORDERED: PROCHLORPERAZINE 5 MG TABLET. PO PRN (10:00)
[2019-11-26] MEDS ORDERED: MORPHINE SULFATE 2 MG/ML VIAL. IVP PRN (10:00)
[2019-11-26] MEDS ORDERED: ZOLPIDEM 5 MG TABLET. PO PRN (10:00)
[2019-11-26] MEDS ORDERED: fentaNYL PF VIAL 100 MCG/2 ML VIAL IVP PRN (10:00)
[2019-11-26] MEDS ORDERED: diphenhydrAMINE 50 MG/ML VIAL IVP PRN (10:00)
[2019-11-26] MEDS ORDERED: CALCIUM CARBONATE 500 MG TAB.CHEW PO PRN (10:00)
[2019-11-26] MEDS ORDERED: DEXTROSE 50% 25 GM / 50ML DISP.SYRIN. IV PRN (10:00)
--- NOTE | 2019-11-26 10:32 | RAD ---
AP and lateral views right knee. 11/26/2019 9:51 AM Indication: Reason: POST OP / Spl. Instructions: / History: Comparison Study: None. Findings: There are postsurgical changes following recent total knee arthroplasty. Hardware is appropriate in position without evidence of complication. No fractures or dislocations are identified. Stigmata of recent surgery including surgical drainage catheter and intra-articular gas are noted. Impression: Expected postsurgical changes following recent right total knee arthroplasty. Electronically signed by: Piero Burgess MD (11/26/2019 10:29 AM) [id number]
[2019-11-26] MEDS: FERROUS SULFATE 325 MG TABLET. PO SCH ×2 (11:00→16:08)
[2019-11-26] MEDS: ONDANSETRON ODT 4 MG TAB.RAPDIS. PO SCH ×2 (12:00→17:44)
[2019-11-26] MEDS: ONDANSETRON PF 4 MG/2 ML VIAL. IVP SCH ×2 (12:00→17:44)
[2019-11-26] MEDS ORDERED: WARFARIN 7.5 MG TABLET. PO ONE (16:00)
[2019-11-26] MEDS: IV NORMAL SALINE 1000ML BAG 1,000 ML IV SCH (16:05)
[2019-11-26] MEDS: KETOROLAC 30MG VIAL 30 MG, BUPIVACAINE MPF 0.25% 20 ML, EPINEPHrine 0.5 MG in TOTAL VOL... INT ART SCH (17:41)
--- NOTE | 2019-11-26 18:22 | PDOC4 ---
Operative Note Operative Note Date of surgery: 11/26/2019 Preoperative diagnosis: Painful right knee medial unicondylar arthroplasty with lateral degenerative changes Postoperative diagnosis: Same Operative procedure: Revision medial unicondylar arthroplasty to right total knee arthroplasty Surgeon: Ady Welt Trimming Machine Operator: Min Busby nurse practitioner Anesthesia: General Estimated blood loss: 20 cc Specimens: Cartilage surfaces to pathology Complications: None Operative indications: Please see my dictated history and physical of today and previous orthopedic clinic notes for detailed operative indications Operative text: Patient was identified procedure verified patient placed in the supine position on the operating table. After adequate amounts of general anesthesia were administered the right lower extremity was prepped and draped in the standard sterile fashion with a thigh tourniquet. After timeout was performed patient procedure identified and verified, the right lower extremity was exsanguinated by Esmarch bandage tourniquet inflated to 250 mmHg and a midline incision was made with a mid vastus approach extending medial parapatellar. Patella was everted fat pad was excised she was noted to have severe patellofemoral chondromalacia with minimal cartilage remaining and severe degenerative change in the lateral compartment. The mobile spacer polyethylene was removed and with adequate exposure a sagittal saw was used to run right along with the cement bone interface of the tibial component and a large oscillating saw used to complete the cut with a forked retractor posteriorly for protection of the tissues. The implant was then tapped out with no bone loss. The femoral component was likewise outlined with the sagittal saw and tapped loose with no bone loss. Tibial cut was made with the extra medullary cutting guide aligned with the second toe and along the tibial shaft and bone was removed and sized. Femur was drilled intramedullary and a distal standard cut was made and femur was sized at a size 3 by using a combination of epicondylar axis and the previous orientation of the femoral condyles resulting in a 3 degree external rotation. Size 3 cutting block was used to make AP and chamfer cuts and a sizing block was used to confirm flexion extension gaps and varus valgus alignment and stability with a 15 mm sizing block. Tibia was sized at a size 3 and pinned in proper rotation drilled and broached a size 3 femur was prepared with a posterior stabilized insert and noted excellent full range of motion stability ligament balance throughout patella was resurfaced with a biconvex 26 mm patellar component which was medialized and any osteophytes were removed and lateral bone trimmed to avoid any impingement. Trial components were then removed thorough irrigation carried out normal saline solution and the following components were cemented in place with polymethylmethacrylate cement: A size 3 right journey nonporous tibial baseplate, a size 3 right Oxinium journey 2 femoral component, and a 26 mm biconvex patellar component. A 15 mm posterior stabilized spacer was temporarily placed in the knee held in extension after excess cement was removed. Thorough irrigation carried out normal saline solution and the intra-articular mixture was injected around the joint capsule and subperiosteally Hemovac drain and pain catheter were placed. Closure of the mid vastus approach was carried out with #1 PDS strata fix suture in a running fashion and excellent watertight closure was noted with excellent patellofemoral tracking and alignment. Subcutaneous closure with buried Vicryl suture subcuticular 3-0 strata fix Monocryl was used to complete the closure and a gerardo drain was placed. Toes were noted to be warm and pink following deflation of the tourniquet patient was returned to recovery room in stable condition having tolerated the procedure well. Min Busby nurse practitioner was present for the procedure assisted in the patient positioning prepping draping retraction closure and dressings COBY OSORIO MD Nov 26, 2019 18:21
[2019-11-26] MEDS: oxyCODONE IR 5 MG TABLET PO PRN (20:27)
[2019-11-26] MEDS ORDERED: HYDROCHLOROTHIAZIDE PO SCH (21:00)
[2019-11-26] MEDS ORDERED: LISINOPRIL PO SCH (21:00)
[2019-11-26] MEDS ORDERED: [UNRECOGNIZED DRUG - OTHER] PO SCH (21:00)
[2019-11-26] MEDS: LISINOPRIL 20 MG TABLET PO SCH (21:13)
[2019-11-26] MEDS: hydroCHLOROthiazide 12.5 MG CAPSULE PO SCH (21:13)
[2019-11-26] MEDS: EZETIMIBE 10 MG TABLET. PO SCH (21:14)
[2019-11-26] MEDS: CYANOCOBALAMIN (VITAMIN B-12) 1,000 MCG TABLET. PO SCH (21:14)
[2019-11-27] VITALS (7 sets, daily range): BP systolic 98–153; BP diastolic 53–74
[2019-11-27] MEDS: oxyCODONE IR 5 MG TABLET PO PRN ×2 (03:49→20:37)
[2019-11-27] MEDS: KETOROLAC 30MG VIAL 30 MG, BUPIVACAINE MPF 0.25% 20 ML, EPINEPHrine 0.5 MG in TOTAL VOL... INT ART SCH (05:48)
[2019-11-27] MEDS: traMADol 50 MG TABLET PO SCH ×3 (05:54→18:00)
[2019-11-27] MEDS: GABAPENTIN 100 MG CAPSULE. PO SCH ×3 (06:00→22:00)
[2019-11-27] MEDS: ONDANSETRON ODT 4 MG TAB.RAPDIS. PO SCH ×2 (06:00)
[2019-11-27] MEDS ORDERED: MAGNESIUM HYDROXIDE 2,400 MG/30 ML ORAL.SUSP. PO PRN (06:00)
[2019-11-27] MEDS: ONDANSETRON PF 4 MG/2 ML VIAL. IVP SCH ×2 (06:00)
[2019-11-27 06:55] LABS: HEMATOCRIT 34.4 % (36.0-47.0); HEMOGLOBIN 12.1 g/dL (12.0-15.5)
[2019-11-27 07:14] LABS: PROTHROMBIN TIME PATIENT 18.1 SEC (11.7-14.0)
[2019-11-27] MEDS: FERROUS SULFATE 325 MG TABLET. PO SCH ×2 (08:00→17:00)
--- NOTE | 2019-11-27 08:00 | NUR ---
ready for the day. up in recliner. am care completed. denies nausea. pain isn't "too bad" she did become orthostatic early this am but remains slightly woozy. reinforced the need to call for help. Hemovac and iac remain intact. she has good sensation, pulses and motion bilateral lower extremities
--- NOTE | 2019-11-27 08:24 | PDOC ---
ORTHO PROGRESS NOTES DATE: 11/27/19 TIME: 08:18 Subjective Patient states that the pain is tolerable at this time. Post-op Day: 1 Procedure Revision of medial unicondylar arthroplasty to right total knee arthroplasty Vitals Vital Signs Date Time Temp Pulse Resp B/P (MAP) Pulse Ox O2 Delivery O2 Flow Rate FiO2 11/27/19 07:00 97.6 60 18 98/53 (68) 92 Room Air 97.6 11/27/19 03:00 2.0 Labs Laboratory Tests Test 11/26/19 07:05 11/27/19 06:30 Prothrombin Time 12.8 SEC (11.7-14.0) 18.1 SEC (11.7-14.0) Prothromb Time International Ratio 1.0 (0.8-1.1) 1.5 (0.8-1.1) Activated Partial Thromboplast Time 26 SEC (24-38) Hemoglobin 12.1 g/dL (12.0-15.5) Hematocrit 34.4 % (36.0-47.0) Mean Corpuscular Hemoglobin Concent 35 g/dL (31-37) Laboratory Tests Test 11/27/19 06:30 Hemoglobin 12.1 g/dL (12.0-15.5) Hematocrit 34.4 % (36.0-47.0) Mean Corpuscular Hemoglobin Concent 35 g/dL (31-37) Prothrombin Time 18.1 SEC (11.7-14.0) Prothromb Time International Ratio 1.5 (0.8-1.1) Notes Awake and alert sitting in a chair at bedside Assessment and Plan Postop day 1 revision of right medial unicondylar arthroplasty to right total knee arthroplasty. Motor and sensation intact distally at the right leg. Dressing is dry and intact with the exception of 1 small area of drainage at the drain site. Calf is soft and nontender. The patient has been up walking this morning. Continue physical therapy and icing and elevation. KOURTNEY NICHOLS APRN Nov 27, 2019 08:24
[2019-11-27] MEDS: PANTOPRAZOLE 40 MG TABLET.DR. PO SCH (08:55)
[2019-11-27] MEDS: MELOXICAM 7.5 MG TABLET PO SCH (08:55)
[2019-11-27] MEDS: SENNOSIDES/DOCUSATE 8.6/50MG TABLET. PO SCH (08:55)
[2019-11-27] MEDS: MULTIVITAMIN with MINERAL TABLET. PO SCH (08:56)
[2019-11-27] MEDS: ASCORBIC ACID 500 MG TABLET PO SCH (08:56)
[2019-11-27] MEDS: VITAMIN B COMPLEX TABLET. PO SCH (08:57)
[2019-11-27] MEDS: ACETAMINOPHEN 500 MG TABLET PO SCH ×2 (08:58→15:00)
[2019-11-27] MEDS: hydroCHLOROthiazide 12.5 MG CAPSULE PO SCH ×2 (08:58→20:39)
[2019-11-27] MEDS: amLODIPine BESYLATE 10 MG TABLET PO SCH (08:59)
[2019-11-27] MEDS: LISINOPRIL 20 MG TABLET PO SCH ×2 (08:59→20:38)
[2019-11-27] MEDS: METOPROLOL SUCC 24HR ER 100 MG TAB.ER.24H. PO SCH (09:00)
[2019-11-27] MEDS: CYANOCOBALAMIN (VITAMIN B-12) 1,000 MCG TABLET. PO SCH ×2 (09:00→20:37)
[2019-11-27] MEDS: IV NORMAL SALINE 1000ML BAG 1,000 ML IV SCH (09:51)
--- NOTE | 2019-11-27 10:17 | NUR ---
Pharmacy Warfarin Dosing Note S: Pharmacy consulted to assist with anticoagulation therapy started 11/26/19 O: JOHNENRIKEJODI REDMAN is a 64 year old F with TKA LABS: Last INR: 1.5 Last HGB: 12.1 Last HCT: 34.4 Last PLT: - Last dose of 7.5 mg given on 11/26/19 at 1608 Ongoing Drug Interactions: MOBIC A:INR of 1.5 is below desired range. Target range for this patient is: 1.6 - 2.5 P: Warfarin dose: 3 mg Today at 1600 Bridge Therapy: None Next INR due 11/28/19 AM Pharmacy anticoagulation service will continue to follow. BERTHA RUANO RP, 11/27/19 1017
[2019-11-27] MEDS ORDERED: ONDANSETRON PF 4 MG/2 ML VIAL. IVP PRN (12:00)
[2019-11-27] MEDS ORDERED: ONDANSETRON ODT 4 MG TAB.RAPDIS. PO PRN (12:00)
--- NOTE | 2019-11-27 15:00 | NUR ---
original surgical dressing removed. IAC (blue tip intact) and Hemovac removed and tolerated well. BERNIE dressing has a scant amount of drainage. rests in recliner.
[2019-11-27] MEDS ORDERED: WARFARIN 3 MG TABLET. PO ONE (16:00)
[2019-11-27] MEDS ORDERED: BISACODYL 10 MG SUPP.RECT. PR PRN (16:00)
[2019-11-27] MEDS: EZETIMIBE 10 MG TABLET. PO SCH (20:37)
[2019-11-28 03:00] VITALS: BP 144/78
[2019-11-28] MEDS: ACETAMINOPHEN 500 MG TABLET PO SCH ×3 (03:00→09:00)
[2019-11-28] MEDS: oxyCODONE IR 5 MG TABLET PO PRN (04:27)
[2019-11-28] MEDS: traMADol 50 MG TABLET PO SCH ×3 (06:00→11:50)
[2019-11-28 07:00] VITALS: BP 99/54
[2019-11-28 07:50] LABS: HEMATOCRIT 33.7 % (36.0-47.0); HEMOGLOBIN 11.5 g/dL (12.0-15.5)
[2019-11-28] MEDS: FERROUS SULFATE 325 MG TABLET. PO SCH (08:00)
[2019-11-28 08:15] LABS: PROTHROMBIN TIME PATIENT 23.5 SEC (11.7-14.0)
[2019-11-28] MEDS: amLODIPine BESYLATE 10 MG TABLET PO SCH (08:22)
[2019-11-28] MEDS: LISINOPRIL 20 MG TABLET PO SCH (08:22)
[2019-11-28] MEDS: hydroCHLOROthiazide 12.5 MG CAPSULE PO SCH (08:22)
[2019-11-28] MEDS: METOPROLOL SUCC 24HR ER 100 MG TAB.ER.24H. PO SCH (08:23)
[2019-11-28] MEDS ORDERED: TRAM50TA PO (08:25)
[2019-11-28] MEDS ORDERED: OXYC-325 PO (08:25)
[2019-11-28] MEDS ORDERED: Warfarin Per Pharmacy MC (08:25)
--- NOTE | 2019-11-28 08:27 | SNU/HH DC ---
DISCHARGE WITH HOME HEALTH DISCHARGE INFORMATION: Condition on Discharge: Stable CODE STATUS: Code Status: Full HOME HEALTH: Face to Face: I certify this patient is under my care and that I, or a nurse practitioner or physician's water quality assistant working with me, had a face to face encounter that meets the physician face to face encounter requirements with this patient on [11/28/2019]. RN For Eval/Treatment: Yes Physical Therapy For: Evalulation/Treatment Pt Meets Homebound Status: Limited distance walking POST DISCHARGE ORDERS: Activity Instructions for Disc: Activity as tolerated Weight Bearing Status after Di: No restrictions, As tolerated DIET AFTER DISCHARGE: Regular Wound/Incision Care: Ice to area for comfort, Do not change dressing (Maintain gerardo dressing and call if saturated), No wound care needed CHECKS AFTER DISCHARGE: Checks after discharge: Check blood press - daily FOLLOW-UP: Follow up with: Dr. Garsia 2 weeks postoperatively Warfarin Follow UP: Dosing and weekly testing per [facility] pharmacy directions TREATMENT/EQUIPMENT ORDERS: Adaptive Equipment Issued: None CERTIFICATION STATEMENT: Certification Statement: Certification Statement: Based on the above finding, I certify that this patient is confined to the home and needs intermittent group home care, physical therapy and/or speech therapy, or continues to need occupational therapy.~ This patient is under my care, and I have initiated the establishment of the plan of care.~ This patient will be followed by myself or a community physician who will periodically review the plan of care. Home Meds Active Scripts Metoprolol Succinate (METOPROLOL SUCCINATE ( XL )) 100 Mg Tab.er.24h, 100 MG PO DAILY for htn, #30 TAB.SR Prov:SEBLE MALIK MD 04/11/19 Reported Medications Multivitamin (MULTIVITAMINS) 1 Each Capsule, 1 TAB PO DAILY for VITAMIN, CAP 11/12/19 Amlodipine Besylate (AMLODIPINE BESYLATE) 10 Mg Tablet, 10 MG PO DAILY for HTN, TAB 11/12/19 Vitamin B Complex (B COMPLEX) 1 Each Tablet, 2 TAB PO DAILY for VITAMIN for 30 Days, #60 TAB 0 Refills 11/12/19 Acetaminophen (TYLENOL) 325 Mg Tablet, 650 MG PO PRN Q6HRS PRN for , TAB 10/31/19 Lisinopril/Hydrochlorothiazide (LISINOPRIL-HCTZ 20-12.5 MG TAB) 1 Each Tablet, 1 PO BID for HTN 10/31/19 Cyanocobalamin (Vitamin B-12) (VITAMIN B-12) 1,000 Mcg Tablet, 2000 MCG PO BID 03/25/13 Ascorbic Acid (VITAMIN C) 1,000 Mg Tablet, 5000 MG PO DAILY08 03/25/13 Ezetimibe (ZETIA) 10 Mg Tablet, 10 MG PO HS 03/25/13 Omeprazole (OMEPRAZOLE) 40 Mg Capsule., 40 MG PO DAILY08 03/25/13 COBY GARSIA MD Nov 28, 2019 08:27
[2019-11-28] MEDS: CYANOCOBALAMIN (VITAMIN B-12) 1,000 MCG TABLET. PO SCH (08:57)
[2019-11-28] MEDS: ASCORBIC ACID 500 MG TABLET PO SCH (08:57)
[2019-11-28] MEDS: MELOXICAM 7.5 MG TABLET PO SCH (08:57)
[2019-11-28] MEDS: SENNOSIDES/DOCUSATE 8.6/50MG TABLET. PO SCH (08:57)
[2019-11-28] MEDS: PANTOPRAZOLE 40 MG TABLET.DR. PO SCH (08:58)
[2019-11-28] MEDS: MULTIVITAMIN with MINERAL TABLET. PO SCH (08:58)
[2019-11-28] MEDS: VITAMIN B COMPLEX TABLET. PO SCH (08:58)
[2019-11-28] MEDS: GABAPENTIN 100 MG CAPSULE. PO SCH ×2 (08:58→14:00)
--- NOTE | 2019-11-28 09:27 | DS ---
DATE OF DISCHARGE: 11/28/2019 CHIEF COMPLAINT: Painful unicondylar knee arthroplasty. PROCEDURE: Conversion of unicondylar to total knee arthroplasty, right knee. DISPOSITION: Home with home health. MEDICATIONS: Include Percocet 5/325 one p.o. q. 4 hours p.r.n. severe pain, tramadol 50 mg p.o. q. 4 hours p.r.n. moderate, Coumadin as directed by Anticoagulation Clinic and resume preoperative medications. BRIEF DESCRIPTION OF HOSPITAL COURSE: The patient underwent an uneventful conversion of a unicondylar knee arthroplasty to a total knee. Postoperatively, she was having significant pain, muscle spasm, requiring initially IV pain medications now, well controlled on oral medications. She is getting up and around well with physical therapy with ambulation and transfers and was discharged home with home health in stable condition. COBY OSORIO MD DR: MUNIRA/marianela JOB#: [id number] / [id number]
[2019-11-28] MEDS: IV NORMAL SALINE 1000ML BAG 1,000 ML IV SCH (09:51)
--- NOTE | 2019-11-28 10:24 | NUR ---
Pharmacy Warfarin Dosing Note S: Pharmacy consulted to assist with anticoagulation therapy started 11/26/19 O: MAYCOLJODI is a 64 year old F with TKA LABS: Last INR: 2.1 Last HGB: 11.5 Last HCT: 33.7 Last dose of 3 mg given on 11/27/19 at 1616 Ongoing Drug Interactions: JOHN A:INR of 2.1 is within desired range. Target range for this patient is: 1.6 - 2.5 P: Warfarin dose: Hold Prior to Discharge Next INR due 12/02/19 per Home Health Pharmacy anticoagulation service will continue to follow. End of Therapy is 12/23/19 BERTHA RUANO RPH, 11/28/19 1024
[2019-11-28 11:00] VITALS: BP 121/61
[2019-11-28 15:00] VITALS: BP 133/63
--- NOTE | 2019-11-28 15:07 | PATHOLOGY ---
[facility] Accession Number: [id number] . 01 Material submitted: . knee - RIGHT KNEE BONE AND TISSUE. Modifiers: right . 01 Clinical history: . Osteoarthritis; degenerative arthritis . 02 Diagnosis: Segments of bone and soft tissue, right knee arthroplasty revision: - Degenerative arthritis. 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 02 Electronically signed: . Omero Martines MD, Pathologist NPI- [id number] . 01 Gross description: . The specimen is received in formalin, labeled "Amintanabor Monk, right knee bone and tissue". Received are multiple segments of bone, including a partial tibial plateau, admixed with soft tissue measuring 4.8 x 12.2 x 3.6 cm in aggregate dimensions. Meniscus is absent. The articular surfaces are smooth to granular in appearance with no grossly distinct evidence of eburnation. Bone cement is identified on the tibial plateau, as well as on additional fragments. The specimen is submitted representatively in cassette A1, following decalcification. ([facility]; 11/27/2019) QAC/QA 11/27/2019 1041 Local . 02 Pathologist provided ICD-10: M17.11 . 02 CPT . 392961, 392150 Specimen Comment: A courtesy copy of this report has been sent to [phone], [phone] Specimen Comment: [id number] Specimen Comment: Report sent to / DR MACK Performed at: 01 [facility] [address], [place] [id number] MD Daniel Quinn MD Phone: [phone] Performed at: 02 [facility] [address], [place] [id number] MD Omero Martines MD Phone: [phone]
--- NOTE | 2019-11-28 15:53 | NUR ---
Discharge Note: JODI SEVERINO A4 KOSSE Discharge instructions and discharge home medications reviewed with Patient and a copy given. All questions have been answered and understanding verbalized. The following instructions and handouts were given: Diet, activity, medication list and follow up instructions provided to patient. Coumadin teaching and medication provided to patient by pharmacy. Discontinued lines and drains: Peripheral IV discontinued and catheter intact. Patient discharged to Home w/services with Family Member via Wheelchair
== END 2019-11-28 15:45 | disposition home health service (06) | DRG 468 ==
LOC: SURG 06:15 → 4 NORTH 09:51 → OBSVTOIN 11-27 12:13
PROVIDERS: ADMIT Orthopaedic Surgery; ATTEND Orthopaedic Surgery
PROC: 0SRC069 Replacement of Right Knee Joint with Oxidized Zirconium on Polyethylene Synthetic Substitute, Cemented, Open Approach (ICD-10-PCS; 2019-11-26)
PROC: 0SPC0JZ Removal of Synthetic Substitute from Right Knee Joint, Open Approach (ICD-10-PCS; principal; 2019-11-26 07:30)
DX: M17.0 Bilateral primary osteoarthritis of knee (principal); E78.00 Pure hypercholesterolemia, unspecified; I10 Essential (primary) hypertension; K30 Functional dyspepsia; M22.40 Chondromalacia patellae, unspecified knee; Z90.710 Acquired absence of both cervix and uterus; Z96.651 Presence of right artificial knee joint; K21.9 Gastro-esophageal reflux disease without esophagitis; Z88.8 Allergy status to other drugs, medicaments and biological substances; Z91.030 Bee allergy status
CPT/HCPCS: 36415; 73560; 85014; 85018; 85610; 85730; 86850; 86900; 86901; 88305; 88311; A7015; C1713; G0378; G0379; J0171; J0690; J1100; J1170; J1885; J2250; J2270; J2405; J2704; J2795; J3010; J3370; J3490; J7030; 97116-GP; 97150-GP; 97530-GP; 97535-GO; C1769

== ENCOUNTER → 2020-09-28 | Outpatient (CLI) | payer MEDICARE ==
[~2020-09-28] MED LIST changes: -ACETAMINOPHEN 500 MG TABLET PO PRN; +AMLO-187 PO; -AMLO10TA8 PO; -GABAPENTIN 300 MG CAPSULE. PO PRN; -MELOXICAM 7.5 MG TABLET PO PRN; -OMEP40CA45 PO; +OMEP40CA7 PO; +OXYC-325 PO; +TRAM50TA PO; -TRANEXAMIC ACID 1,000 MG in IV NS 50ML -- 1ST BAG INJ ONE; +Warfarin Per Pharmacy MC
--- NOTE | 2020-09-28 17:59 | KCIC ---
BILATERAL SCREENING MAMMOGRAM History: Routine screening. Comparison: Bilateral mammogram July 18, 2014. Technique: Routine bilateral digital mammogram views. Findings: Breast Tissue Density A : The breasts are almost entirely fatty. Tiny mass in the right breast 11:00 central position that is probably an intramammary lymph node is s table. There are no dominant masses, suspicious microcalcifications or architectural distortion. IMPRESSION: No mammographic evidence of malignancy. Recommend routine screening. BI-RADS category 2: Benign findings. The images were reviewed with computer aided detection. Patient information is entered into the reminder system with a target due date for the next screening mammogram. Mammography is the most sensitive method for finding small breast cancers, but it does not detect the m all and is not a substitute for careful clinical examination. A negative mammogram does not negate a clinically suspicious finding and should not result in delay in biopsying a clinically suspicious a bnormality. "Our facility is accredited by the [employer] Mammography Program." Electronically signed by: Cristopher Bennett MD (09/28/2020 5:56 PM) [facility]
== END ==
LOC: KCIC MAMMO 08:09
PROVIDERS: ATTEND Internal Medicine
DX: Z12.31 Encounter for screening mammogram for malignant neoplasm of breast (principal)
CPT/HCPCS: 77067